=== PATIENT | male | born 1945 | race Caucasian/White ===

== ENCOUNTER 2019-02-22 14:34 | Inpatient (IN) ==
--- NOTE | 2019-02-22 15:16 | Diag Imaging Result Doc PS360 ---
EXAM: CHEST-1 VIEW HISTORY: sepsis protocol TECHNIQUE: Chest single view COMPARISON: 02/20/2019 FINDINGS: Poor inspiratory effort. The heart is not enlarged. There are sternal wires. The vessels are not distended. There are no infiltrates. No effusion identified. IMPRESSION: No pneumonia. Electronically signed by Koko Navarro 02/22/2019 3:14 PM
[2019-02-22 15:19] LABS: BASO# 0.01 X1000 (0.0-0.2); BASO% 0.2 % (0.0-0.8); HEMATOCRIT 33.3 % (42.0-52.0); HEMOGLOBIN 10.8 g/dL (14.0-18.0); IMM GRAN# 0.12 X1000 (0.0-0.04); LYMPH# 0.34 X1000 (1.2-3.4); LYMPH% 5.6 % (20.5-51.1); MCH 24.2 PG (27-31); MCHC 32.4 g/dL (33-37); MCV 74.7 FL (81-99); MONO# 0.48 X1000 (0.11-0.59); MONO% 7.9 % (1.7-9.3); NEUT# 5.16 X1000 (1.4-6.5); NEUT% 84.3 % (42.2-75.2); PLT 81 X1000 (130-400); RBC 4.46 XMIL (4.7-6.1); RDW 18.9 % (11.5-14.5); WBC 6.11 X1000 (4.8-10.8)
[2019-02-22 15:28] LABS: INR 1.24; PROTIME 16.2 Seconds (11.0-16.0)
[2019-02-22 15:29] LABS: PTT 35.2 Seconds (22.3-41.8)
[2019-02-22] MEDS ORDERED: ZOSYN 4.5 GM in NS 100 ML IV ONE (15:40)
[2019-02-22] MEDS ORDERED: NS 500 ML IV ONE (15:41)
[2019-02-22 15:43] LABS: ALBUMIN 3.5 g/dL (3.5-5.0); CALCIUM 8.2 mg/dL (8.8-10.2); CREATININE 1.9 mg/dL (0.7-1.2); MAGNESIUM 1.7 mg/dL (1.5-2.7); POTASSIUM 4.5 mmol/L (3.5-5.1); TOTAL BILIRUBIN 0.6 mg/dL (0.20-1.00); TOTAL PROTEIN 5.6 g/dL (6.3-8.3)
[2019-02-22 15:46] LABS: BE -3.6 mmoll (-3.0-3.0); BLOOD TYPE ARTERIAL; METHB 0.9 % (0.0-1.5); O2(CT) 14.1 mL/dL (15.0-23.0); O2HB 92.7 % (95.0-99.0); PCO2(98.6) 30 mmHg (35-45); PO2(98.6) 62 mmHg (60-100); SAMPLE BLOOD; SAO2 95.7 % (95.0-100.0); THB 10.8 g/dL (11.5-17.4); pH(98.6) 7.43 (7.35-7.45)
[2019-02-22 15:48] LABS: ALLEN TEST YES; MODALITY ROOM AIR
--- NOTE | 2019-02-22 16:07 | EKG Report ---
Test Performed on : 02/22/2019 3:32:18 PM Test Reason : arrythmia Blood Pressure : / mmHG Vent. Rate : 113 BPM Atrial Rate : 117 BPM P-R Int : 000 ms QRS Dur : 130 ms QT Int : 364 ms P-R-T Axes : 000 -22 158 degrees QTc Int : 499 ms Atrial fibrillation. with rapid ventricular response. Left ventricular hypertrophy with QRS widening Inferior infarct (cited on or before 20-FEB-2019) T wave abnormality, consider lateral ischemia Abnormal ECG When compared with ECG of 20-FEB-2019 22:14, (Unconfirmed) Atrial fibrillation. has replaced Sinus rhythm. Serial changes of Inferior infarct present Unconfirmed Result
[2019-02-22 16:14] LABS: CK INDEX 0.8 (0.0-2.5); CK-MB 4.95 ng/mL (0.0-5.0)
[2019-02-22] MEDS ORDERED: ZOFRAN IV PRN (16:27)
[2019-02-22] MEDS ORDERED: NS 1,000 ML IV ONE (16:27)
[2019-02-22 16:37] LABS: BILIRUBIN URINE NEGATIVE (NEGATIVE); BLOOD URINE 4+ (NEGATIVE); CLARITY VERY CLOUDY (CLEAR); COLOR AMBER; KETONE URINE TRACE mg/dL (NEGATIVE); LEUKOCYTES URINE TRACE (NEGATIVE); NITRITE URINE NEGATIVE (NEGATIVE); PROTEIN URINE 2+(100 mg/dL) mg/dL (NEGATIVE); UROBILINOGEN URINE NORMAL
[2019-02-22 16:42] LABS: BANDS 16 % (0-1); LYMPHS 3 % (21-51); MONO 9 % (1-9); SEGS 67 % (42-75)
[2019-02-22 16:43] LABS: BURR CELLS RARE; LARGE PLATELETS OCCASIONAL; MICROCYTOSIS 1+
[2019-02-22] MEDS: ASPIRIN PO SCH (16:56)
[2019-02-22 17:40] LABS: URINE BACTERIA 1+ /HFP; URINE EPITHELIAL CELLS <10 /HPF (<10); URINE RBC TNTC /HPF (<10)
[2019-02-22 17:41] LABS: URINE CAST NONE SEEN /LPF; URINE CRYSTAL NONE SEEN /HPF; URINE SOURCE CATH; URINE YEAST NONE SEEN /HPF
[2019-02-22] MEDS: ZYVOX 600 MG/D5W 600 MG/300 ML IVPB IV SCH (17:50)
[2019-02-22] MEDS: LOVENOX SUBQ SCH (18:07)
[2019-02-22 19:05] LABS: CK INDEX 0.9 (0.0-2.5); CK-MB 4.97 ng/mL (0.0-5.0)
--- NOTE | 2019-02-22 19:38 | HISTORY AND PHYSICAL ---
PRIMARY CARE PROVIDER: Dr. Gab Dyer. CHIEF COMPLAINT: Nausea and vomiting twice today. He has had fever and chills for 3 days. HISTORY OF PRESENT ILLNESS: Mr. Hamzah Tello is a 73-year-old male with a medical history of coronary artery disease. He required coronary artery bypass grafting in the past. Also with history of chronic atrial fibrillation, on Coumadin therapy, that is currently subtherapeutic. Apparently, he came to the ER 2 days ago, but there is no physician record of this, but there is an EKG that was reviewed for 2 days ago. The man denies any chest pains or shortness of breath. He essentially just feels run down, some nausea, had vomiting twice, and has had fever and chills for 3 days. He is somewhat confused on questioning him, but he has an elevation in his troponin level. The EKG does show some elevations in leads 3 and F, but Dr. Brian Edwards spoke with Dr. Bailey who reviewed the EKG from 2 days ago and the EKG from today, and he says there is no change in that, it is going to be considered a NSTEMI and not an ST elevated SD. He also has some signs and symptoms of sepsis. His lactate is up. White count is actually normal, but he is tachycardic. He has a little bit of atrial fibrillation with RVR. Blood pressure is stable with that, and so we are going to transfer him to [facility] PVC unit. We will also get him on broad-spectrum antibiotics as well. PAST MEDICAL HISTORY: 1. Hypertension. 2. Atrial fibrillation, on Coumadin. 3. Diabetes mellitus type 2. 4. Hyperlipidemia. 5. Coronary artery disease with history of CABG. SURGICAL HISTORY: 1. Coronary artery bypass grafting. 2. Bilateral ankle surgery. SOCIAL HISTORY: Denies tobacco, alcohol, or illicit drug use. Lives at home with his and their mentally challenged adult son. FAMILY HISTORY: Mother: No medical conditions. On his father's side, everybody had coronary disease and CABG. ALLERGIES: IVP dye. HOME MEDICATIONS: 1. Januvia 100 mg p.o. nightly. 2. Pravachol 20 mg p.o. nightly. 3. Actos 15 mg p.o. daily. 4. Amiodarone 400 mg p.o. daily. 5. Metformin 500 mg p.o. twice daily. 6. Losartan 50 mg p.o. daily. 7. Toprol-XL 50 mg p.o. twice daily. 8. Coumadin 5 mg p.o. nightly. 9. Prilosec 20 mg p.o. twice daily. REVIEW OF SYSTEMS: Fourteen point review of systems are complete and all were negative except for those mentioned in the above HPI. PHYSICAL EXAMINATION: VITAL SIGNS: Temperature 99.9 degrees, heart rate 118, respiratory rate 22, blood pressure 114/63, O2 saturation 94% on room air. 5 feet 5 inches tall, 172 pounds. BMI is 28.6. GENERAL: Mr. Hamzah Tello is a 73-year-old male. He is answering most questions appropriately. HEENT: Atraumatic, normocephalic. Pupils equal, round, reactive to light. Extraocular movements intact. Mucous membranes are dry. NECK: Trachea midline. CARDIOVASCULAR: S1, S2. Regular rate and rhythm. No rubs, gallops, murmurs. No lower extremity edema. +2 dorsalis and radial pulses. Negative JVD or carotid bruits. PULMONARY: Clear to auscultation. Bilateral breath sounds. No accessory muscle use or work of breathing noted. GI: Soft, nontender, nondistended. Positive bowel sounds x4. EXTREMITIES: Moves all extremities equally. Full range of motion. NEUROLOGIC: Alert and oriented x3, but with confused conversation. SKIN: Warm, dry, intact. LABORATORY DATA: White blood cells 6000, hemoglobin 10, hematocrit 33, platelet count 81,000. Two days ago, it was just 137. INR is 1.24, PTT is 35.2. ABGs: PH 7.43, pCO2 30, pO2 62, bicarbonate 22, base excess -3.6, saturation 92%. Lactate 1.7. Sodium 129, potassium 4.5, BUN 22, creatinine is 1.9, glucose 230, calcium 8.2, magnesium 1.7, bilirubin 0.60, AST 81, ALT 37, CK 603. The index is 0.8, troponin is 1.030. Two days ago, it was normal. ProBNP 24,864. Albumin 3.5. Serum lactate 2.3. IMAGING: Chest x-ray: No pneumonia. Heart not enlarged. EKG: Atrial fibrillation with RVR, rate 113. QTc is 499. ASSESSMENT AND PLAN: 1. Non ST-elevation myocardial infarction. Both electrocardiograms from 2 days ago when he was here and today, it does look like there is an ST elevation in 3 and F, but this was viewed by Dr. Bailey who is not calling this ST-elevation myocardial infarction, so this is going to be a non-ST elevation myocardial infarction, and it is because he is in atrial fibrillation. So, we will do weight-based Lovenox twice a day, aspirin, statin, and metoprolol. 2. Atrial fibrillation with rapid ventricular response. Electrocardiogram shows a rate of 113, but on telemetry he was actually hanging in the 90s while at the bedside. He is on metoprolol twice a day and we will continue that. Will also continue his amiodarone that he is on at home, and currently he is subtherapeutic on his INR, and he is going to be on the weight-based Lovenox. 3. Hypertension. Home medications resumed. 4. Diabetes mellitus type 2 with hyperglycemia. Patterned blood glucoses, sliding scale insulin. Going to hold the metformin for now. 5. Hyperlipidemia. Continue statin. 6. History of coronary artery disease with coronary artery bypass grafting. Please see #1. 7. Signs and symptoms of sepsis, but not shock. Source is currently unknown. Blood cultures ordered. Urinalysis is pending. Chest x-ray does not reveal any pneumonia. 8. Thrombocytopenia. His platelet count is 81,000. Just 2 days ago, it was normal at 137, so we will have to watch closely to make sure he does not have a lower response to the Lovenox. 9. Mild acute kidney injury. He is going to get some fluids, but not too much. His proBNP was over 24,000, and it actually appears to be chronic kidney disease stage 3 in there, looking at his old numbers. 10. Deep venous thrombosis prophylaxis. He is on weight-based Lovenox. Dictated by JOEY Smith for Nader Wilson MD Addendum: Patient seen and examined by myself. Agree with JOEY note. It reflects my assessment and plan. Patient is being admitted to hospital for NSTEMI. Will consult Cardiology. Will continue with Metoprolol and Amiodarone. Will trend cardiac enzymes as well. Will follow lead from Cards. cc: JOEY Smith MD Raphael K. Quansah, MD Thomas E. Lockard, DO MTDD
[2019-02-22] MEDS: PRILOSEC PO SCH (20:26)
[2019-02-22] MEDS: HUMULIN R (PARKWAY) SUBQ SCH (20:26)
[2019-02-22] MEDS: TOPROL XL PO SCH (20:26)
[2019-02-22] MEDS ORDERED: ZOCOR PO SCH (21:00)
[2019-02-22] MEDS ORDERED: LIPITOR PO SCH (21:00)
[2019-02-23] MEDS: TYLENOL PO PRN ×2 (00:05→07:30)
[2019-02-23 02:35] LABS: CK INDEX 0.9 (0.0-2.5); CK-MB 4.83 ng/mL (0.0-5.0)
[2019-02-23] MEDS: LOVENOX SUBQ SCH ×2 (04:16→16:40)
[2019-02-23] MEDS: ZYVOX 600 MG/D5W 600 MG/300 ML IVPB IV SCH (04:16)
[2019-02-23] MEDS: HUMULIN R (PARKWAY) SUBQ SCH ×4 (06:09→21:02)
--- NOTE | 2019-02-23 06:40 | EKG Report ---
Test Performed on : 02/23/2019 06:17:08 AM Test Reason : nstemi Blood Pressure : / mmHG Vent. Rate : 088 BPM Atrial Rate : 100 BPM P-R Int : 000 ms QRS Dur : 130 ms QT Int : 394 ms P-R-T Axes : 000 -06 131 degrees QTc Int : 476 ms Atrial fibrillation. Nonspecific intraventricular block T wave abnormality, consider lateral ischemia Abnormal ECG When compared with ECG of 22-FEB-2019 15:32, (Unconfirmed) Criteria for Inferior infarct are no longer present Confirmed by Wesly Sin MD ([id number]) on 03/01/2019 8:33:28 AM
[2019-02-23] MEDS ORDERED: VANCOMYCIN IV PER PHARMACY MISC SCH (08:45)
[2019-02-23] MEDS: ASPIRIN PO SCH (08:54)
[2019-02-23] MEDS: ZOSYN 2.25 GM in NS 50 ML IV SCH ×3 (08:54)
[2019-02-23] MEDS: TOPROL XL PO SCH ×2 (08:55→21:03)
[2019-02-23] MEDS: PRILOSEC PO SCH ×2 (08:55→21:03)
[2019-02-23] MEDS ORDERED: CORDARONE PO SCH (09:00)
[2019-02-23 09:25] LABS: BASO# 0.01 X1000 (0.0-0.2); BASO% 0.2 % (0.0-0.8); EOS# 0.02 X1000 (0.0-0.7); EOS% 0.3 % (0.0-10.0); HEMATOCRIT 30.1 % (42.0-52.0); HEMOGLOBIN 10.1 g/dL (14.0-18.0); IMM GRAN# 0.05 X1000 (0.0-0.04); IMM GRAN% 0.8 % (0.0-0.5); LYMPH# 0.65 X1000 (1.2-3.4); LYMPH% 10.1 % (20.5-51.1); MCH 24.3 PG (27-31); MCHC 33.6 g/dL (33-37); MCV 72.5 FL (81-99); MONO# 0.65 X1000 (0.11-0.59); MONO% 10.1 % (1.7-9.3); NEUT# 5.06 X1000 (1.4-6.5); NEUT% 78.5 % (42.2-75.2); PLT 74 X1000 (130-400); RBC 4.15 XMIL (4.7-6.1); RDW 18.7 % (11.5-14.5); WBC 6.44 X1000 (4.8-10.8)
[2019-02-23 09:45] LABS: INR 1.35; PROTIME 16.9 Seconds (11.0-16.0)
[2019-02-23 09:56] LABS: ALBUMIN 2.7 g/dL (3.5-5.0); CALCIUM 8.1 mg/dL (8.8-10.2); CREATININE 1.7 mg/dL (0.7-1.2); POTASSIUM 3.6 mmol/L (3.5-5.1); TOTAL BILIRUBIN 0.52 mg/dL (0.20-1.00); TOTAL PROTEIN 5.4 g/dL (6.3-8.3)
[2019-02-23 10:00] LABS: CK INDEX 1.2 (0.0-2.5); CK-MB 5.59 ng/mL (0.0-5.0)
--- NOTE | 2019-02-23 10:23 | EKG Report ---
Test Performed on : 02/23/2019 10:16:04 AM Test Reason : cp Blood Pressure : / mmHG Vent. Rate : 090 BPM Atrial Rate : 234 BPM P-R Int : 000 ms QRS Dur : 132 ms QT Int : 398 ms P-R-T Axes : 000 -09 185 degrees QTc Int : 486 ms Atrial fibrillation. Nonspecific intraventricular block Inferior infarct , age undetermined T wave abnormality, consider lateral ischemia Abnormal ECG When compared with ECG of 23-FEB-2019 06:17, (Unconfirmed) Inferior infarct is now present Confirmed by Wesly Sin MD ([id number]) on 03/01/2019 8:33:47 AM
[2019-02-23 10:26] LABS: ANISOCYTOSIS 1+; BANDS 12 % (0-1); LYMPHS 6 % (21-51); SEGS 80 % (42-75)
[2019-02-23 10:27] LABS: HYPOCHROM 1+; MICROCYTOSIS 1+
[2019-02-23] MEDS ORDERED: VANCOMYCIN 1,650 MG in NS 250 ML IV ONE (11:00)
--- NOTE | 2019-02-23 12:18 | CARDIOLOGY CONSULTATION ---
DATE: 02/23/2019 REASON FOR CONSULTATION: Cardiology was consulted for abnormal cardiac enzymes. HISTORY OF PRESENT ILLNESS: Mr. Tello is a 73-year-old gentleman who has been having fevers and chills since past Tuesday, he has had a fever going up to 104 degrees. Patient came to the emergency room on Tuesday. Subsequently he went and saw Dr. Dyer, was noted to be in atrial fibrillation and with rapid rate. Patient was recommended to be admitted to the hospital. He has had some nausea and vomiting with the fever and he has been complaining of generalized joint pains in his lower extremities, in his ankles, rodriguez as well as in right shoulder. He fell because of weakness and had abrasions on both knees as well as injured his right shoulder. He has been complaining of severe weakness of his lower extremities and is unable to walk. Prior to these episodes, he had been doing reasonably well and was ambulating. He does not complain of chest pain. He complains of weakness and some shortness of breath. Does not complain of any cough or expectoration. Does not complain of having had any burning micturition. REVIEW OF SYSTEMS: A 14-point review of system was done. Gastrointestinal system: As above. In addition, there is no history of hematemesis or melena. Central Nervous System: Complains of generalized weakness. No focal weakness to suggest a CVA, TIA. Genitourinary system: No hematuria. No dysuria. PAST MEDICAL HISTORY: 1. Chronic atrial fibrillation. 2. Hypertension. 3. Diabetes. 4. Coronary artery disease, status post coronary artery bypass grafting in 2002 with DAVISON to left anterior descending artery, SVG to OM, SVG to PDA. 5. Left heart catheterization in the past in 1993. At that time he had a PTCA to his RCA as well. 6. LV dysfunction. HOME MEDICATIONS: Include losartan 50, amiodarone 400, omeprazole 20 b.i.d., metoprolol succinate 50 b.i.d., Coumadin as directed, metformin 500 mg p.o. b.i.d., pravastatin 25, Lotrisone, Januvia. ALLERGIES: He is allergic to IVP dye. PHYSICAL EXAMINATION: Vital Signs: Blood pressure was 110/65. As far as his temperature was concerned, when he came in it was 100.7 degrees, today is 97.9 degrees. Cardiovascular: First and second heart sounds were heard. There was soft murmur. Respiratory System: Normal air entry. There is no crepitations or rhonchi. Abdomen: Soft, nontender. There was no guarding or rigidity. Bowel sounds were heard. Central nervous system: Was alert, oriented. Was moving all 4 extremities. Extremities: Examination of his extremities revealed severe tenderness and swelling in both ankles, tenderness in his knee, tenderness in his right shoulder. LABORATORY EXAMINATION: 1. Revealed WBC 6.4, hemoglobin 10.1, platelet count of 74,000. Sodium 129, potassium 3.6, BUN 26, creatinine 1.7. CK of 547, CK-MB 483, CK of 455, CK-MB 5.59. Troponin abnormal at 1.01, subsequent troponin 0.847. 2. His liver function tests revealed alkaline phosphatase 31. 3. Magnesium was 1.7. Creatinine when he came in was 1.9. 4. Electrocardiogram revealed atrial fibrillation with interventricular conduction delay. No acute ST-T changes to suggest infarction. 5. Chest x-ray was unremarkable. 6. Urine examination revealed urine microscopic RBCs and WBCs were noted with urine proteins and urine glucose was elevated. ASSESSMENT AND PLAN: 1. Ms. Hamzah Tello is a 73-year-old gentleman with history of chronic atrial fibrillation on anticoagulation therapy, coronary artery disease status post coronary artery bypass grafting, hypertension, hyperlipidemia. Comes with complaints of having fevers for almost a week since Tuesday, has had fevers at home going up to 104 degrees. He complains of severe joint pains. He, from a cardiac standpoint, has abnormal cardiac enzymes(Type 2 IN). His blood cultures are pending. I suspect his symptomatology is secondary to an infective process. He has been started on multiple antibiotics. Blood cultures are pending. He has a urinary tract infection. Will get ESR ,CRP 2. From a cardiac standpoint, we will get an echocardiogram to assess cardiac and valvular function. 3. He has abnormal cardiac enzymes that could be multifactorial if he is bacteremic and as well as noted to have renal insufficiency. He denies chest pain at the present time. There was no acute ST elevations to account for any acute myocardial infarction and he denies chest pain. We recommend continuing with his home medications. 4. Diabetes. Continue with his home medications or change it as required. 5. As far as his cardiac medicines are concerned, he has been on amiodarone 400 mg a day. We will decrease it to 200 mg a day. Continue with losartan 50 and metoprolol. 6. Hyperlipidemia. He is on pravastatin. Would recommend continuing the same. 7. As far as further workup is concerned from a cardiac standpoint, we will see what the echocardiogram shows. In addition, I suspect this is all secondary to an infective process. We will follow hospital course. Thank you for the consult. cc: MD Jamie Washington MD MTDD
--- NOTE | 2019-02-23 13:14 | PROGRESS NOTE ---
DATE: 02/23/2019 Mr. Tello is a very poor historian and seems to be fairly confused, and he is not able to give a very accurate history. However, he refers to have gone to [place] yesterday because of some abdominal discomfort and vomiting. No diarrhea. He is also complaining of left ankle pain for the past 3 days associated with generalized weakness and malaise. After presenting to the emergency department in [place], he was found to be in atrial fibrillation RVR, so he was brought in here for higher level of care. This morning, he refers to be doing a little better, but he still has a left ankle pain. OBJECTIVE: Vital signs: Blood pressure is 110/65. Pulse is currently 85 on the tele monitoring. Respirations are 18, temperature 97.9 degrees. The patient is saturating 93% on room air. General: Mr. Tello is a 73-year-old elderly gentleman. He does not seem to be in any distress. HEENT: Mucosa is pink and moist. Anicteric. Acyanotic. Neck: Supple. No JVD. Chest: Good air entry bilaterally. No crepitations. Cardiovascular: Regular rate and rhythm. The patient's heart rate is now better controlled. No murmurs. There is an old sternotomy scar on the anterior mid chest wall. Abdomen: Soft, nontender. Extremities: No pedal edema. The left ankle is slightly swollen. I do not see any erythematous changes, but it is very tender on range of movement. The patient has superficial abrasions on both knees. 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 He seems to have some baseline cognitive defect. LABORATORY DATA: CBC shows microcytic anemia and thrombocytopenia. The patient has 12% of bands on the peripheral smear. INR 1.3. Patient was on Coumadin therapy. Sodium is 129. Bicarb is 22. Creatinine is down to 1.7. Troponins have been fairly elevated at 0.847. It went up to 1.010; it is likely trending down. A chest x-ray yesterday shows no pneumonia. Blood culture is showing gram-positive cocci 2/2. ASSESSMENT: 1. Gram-positive cocci bacteremia. The source of this infection is currently unknown. There is a suspicion that the left ankle could have septic arthritis. We will do a CT scan of that and will also get Orthopedics to evaluate him. 2. Sepsis of unclear source. The patient is on antimicrobial therapy. Blood cultures are showing gram-positive cocci. 3. Left ankle pain. The left ankle is minimally swollen. We are going to get a CT scan of it. Unfortunately, patient's creatinine is abnormal, so we cannot use any contrast. We will also get Orthopedics to evaluate. They might have to end up doing an aspiration to rule out septic arthritis versus possible gout. 4. Acute on chronic renal failure. We will continue with the IV fluids. Creatinine seems to be trending down. 5. History of paroxysmal atrial fibrillation with rapid ventricular rate on presentation. We think this has been precipitated because of the ongoing sepsis. The patient has been evaluated by Cardiology. We are going to continue with his metoprolol. 6. Microcytic anemia. We will check iron studies to rule out any underlying iron deficiency. If it is confirmed, it will be replaced once infection is under control. 7. Elevated troponin with no acute EKG changes concerning for either a demand ischemia (type 2 myocardial infarction) versus a possible [id number] myocardial infarction. The patient has a remarkable history of coronary artery disease status post CABG. Cardiology has evaluated the patient. 8. Thrombocytopenia. Most likely due to the ongoing sepsis. So in general, I think Mr. Tello is critically sick. He is currently on Zosyn and vancomycin combination. We have consulted ID to help us with antimicrobial coverage. We will also get Orthopedics to evaluate the ankle to rule out any possible septic arthritis. Mr. Tello has been seen by Cardiology. His heart rate is currently under control on the metoprolol. We will continue with his other home medications. cc: Jamie Solomon MD critical time 45 minutes [facility]
[2019-02-23] MEDS: CUBICIN 500 MG in NS 100 ML IV SCH (14:16)
--- NOTE | 2019-02-23 16:32 | Diag Imaging Result Doc PS360 ---
EXAM: CT EXT LOWER LEFT W/O CON INDICATION: GPC bacteremia. r/o left septic arthritis TECHNIQUE: This exam was performed using automated exposure control, adjustment of mA or kV according to patient size, and/or use of iterative reconstruction technique. COMPARISON: None. FINDINGS: There is extensive irregularity involving the talus and calcaneus with subcortical cyst formation, especially adjacent to the subtalar joint. There are chronic appearing bony fragments posterior to the talus. 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 There are milder degenerative changes at the distal tibia and fibula. There is no evidence of acute fracture. There is nothing that would necessarily indicate osteomyelitis on the current study. However, MRI would be more sensitive. There is mild generalized soft tissue edema around the foot. 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 No finding that is specific for osteomyelitis given the limitations of CT versus MRI. Electronically signed by Devin Eason 02/23/2019 4:29 PM
--- NOTE | 2019-02-23 16:41 | INFECTIOUS DISEASE CONSULT REP ---
DATE: 02/23/2019 CONCLUSION: The patient has a gram-positive coccal bacteremia and I think this will route returner to be either a Streptococcus or Staphylococcus aureus. I think it originated from the patient when he fell on his knees and caused blood to come from the wounds on the knee. I think possibly organisms on the patient's skin entered through the bleeding wounds and caused the bacteremia. He has a left ankle that is swollen and it may have become infected hematogenously, or maybe it just the swelling because when he fell he puts some different pressure on the ankle. RECOMMENDATIONS: I have switched the patient from vancomycin and Zosyn to daptomycin. A side effect of the antibiotic, namely muscle toxicity, has been explained to the patient who agrees with treatment. I have discontinued the patient's Pravachol because it can interact with daptomycin and increase the risk of muscle toxicity. I told the patient that while he is on daptomycin, he should not take his Pravachol and that once the daptomycin is stopped, he can resume Pravachol. DISCUSSION: The patient tells me approximately 5 days ago he fell and injured his knees. He was out walking when he fell. He caused blood to be coming from both knees. He developed progressive pain in his legs. He has been admitted to the hospital. Here his blood cultures are growing gram- positive cocci. Urine culture is negative. Urinalysis did show white cells and bacteria. Chest x-ray shows no infiltrates. CK is 455. Creatinine is 1.7. GFR is 40. CBC shows a white count of 6440, hemoglobin 10.1, and platelet count 74,000. PAST MEDICAL HISTORY/REVIEW OF SYSTEMS: Eyes and ears: He says he hears and sees well. Neck: No stiffness. Cardiac: No chest pain or palpitations. Gastrointestinal: No nausea, vomiting, or diarrhea. Genitourinary: No dysuria or flank pain. Neurovascular: The patient's legs are sore and he is unable to walk because of that. His left ankle is also more swollen than the right and it is causing the patient pain when he tries to walk on it. Neurologic: No seizures. The patient now is finding it much more difficult to walk due to pain especially in his ankles. PREVIOUS HOSPITALIZATIONS AND OPERATIONS: Patient has had bilateral ankle joint surgeries. He has also had coronary artery bypass grafting. MEDICAL DISEASES: Positive for diabetes mellitus, hypertension, myocardial infarction, hyperlipidemia, paroxysmal atrial fibrillation and coronary artery disease. INFECTIOUS DISEASE HISTORY: Negative for pneumonia and UTI. FAMILY HISTORY: Positive for diabetes mellitus, hypertension and myocardial infarction. SOCIAL HISTORY: The patient is . He lives in [place]. He is retired. He does not smoke cigarettes, drink alcoholic beverages or abuse drugs. He does not have any pets at home. ALLERGIES: He is allergic to IV dye. HOME MEDICATIONS: Include the following: Amiodarone, lisinopril losartan, metformin, metoprolol, omeprazole, Actos Pravachol, Januvia, and warfarin. The if you could I made a mistake on when I am when I was dictating about stopping the patient's Lipitor. If you could change where I dictated Lipitor a few could put Pravachol instead not continuing. PHYSICAL EXAMINATION: Vital Signs: Temperature is 99.7 degrees, pulse 94, respirations 16, blood pressure 114/74. The patient is 5 feet 5 inches tall, weighs 184 pounds. General: This is an obese, elderly male. He is in no acute distress just lying in bed. Head/eyes/ears/nose/throat: He can hear my spoken words and see near objects. He does not have any white coating on his tongue. Neck: No meningismus. Lungs: Clear to auscultation. Cardiovascular: Heart rate is irregular. Abdomen: Soft and nontender. Extremities: Both knees have some erythema and multiple small eschars over the kneecap. The patient's ankles are swollen. The left is more so than the right. I wiped off the patient's ankle with alcohol and then I sterilely put the patient's needle on the syringe and attempted to aspirate the ankle. I put the needle in only once and I did not obtain any fluid. I cleaned the area again where I put needle in with alcohol and then I have put some 2 x 2s over that and I taped down the 2 x 2s. Neurologic: The patient is awake. He can move his extremities. It does hurt him to move his ankles. He does not have a tremor. He has sensations intact to touch and pain. Thank you for the consult. cc: MD Jamie Mayer MD
--- NOTE | 2019-02-23 18:24 | ECHO REPORT ---
ORDER DATE: 02/23/2019 MEASUREMENTS: Left atrium 4.3, aortic root 3.9. SUMMARY: 1. Fair quality study. 2. Aortic valve is sclerotic but appears to open adequately on 2-dimensional images. Peak gradient across aortic valve is 12 mmHg. Mitral and tricuspid valves are without evidence of structural abnormality while pulmonic valve is not well demonstrated. There is mild mitral regurgitation and mild tricuspid regurgitation. The estimated systolic PA pressure by Doppler is 65 mmHg suggesting moderate to severe pulmonary hypertension. Aortic root is borderline enlarged. 3. Normal left ventricular dimensions suggested on 2-dimensional images. Estimated left ejection fraction appears to be approximately 40% in the setting of mild global hypokinesis. Left atrium is mild to moderately enlarged. The right atrium, right ventricle are grossly normal in size. 4. No pericardial effusion. 5. Appearance of inferior vena cava suggests normal central venous pressure. 6. Atrial fibrillation during study. cc: MD Delores Mcclure CRNP Raphael K. Quansah, MD
--- NOTE | 2019-02-23 19:02 | ORTHOPAEDICS CONSULTATION ---
DATE: 02/23/2019 SUBJECTIVE: Hamzah Tello is a 73-year-old male who was admitted on 02/22 for cardiac abnormality, possible PR. He was subsequently diagnosed with bacteremia, sepsis, and he was complaining of left ankle pain and swelling and inability to bear weight. Dr. Saucedo saw him from Infectious Disease and placed him on daptomycin and attempted arthrocentesis of the ankle without returning any fluid. They also did a CT scan of his ankle as well, which showed mostly chronic degenerative type changes, but no definitive abscess or osteomyelitis; however, there are limitations of the CT scan in that regard. OBJECTIVE: On physical exam, he is a well-developed, well-nourished male. He is alert and cooperative with the exam. He does pain with range of motion of his subtalar joint mainly. He does have some mild pain with range of motion of his ankle. His foot is mildly swollen and warm as well. PAST MEDICAL HISTORY: Includes hypertension, atrial fibrillation, diabetes, coronary artery disease with a CABG in the past. PAST SURGICAL HISTORY: His past surgical history includes coronary artery bypass graft and bilateral foot surgery. REVIEW OF SYSTEMS: Negative except as noted above. MEDICATIONS AND ALLERGIES: See chart. ASSESSMENT: Left ankle pain, swelling and warmth but no significant palpable fluid in his ankle joint or subtalar joint. I think we should get an MRI of his ankle and foot to evaluate for possible osteomyelitis as I do not feel he has septic arthritis. He certainly has significant degenerative changes in his foot but particularly the subtalar joint and these symptoms could all be related to a Charcot type joint but that still would not explain the bacteremia. Once we get the MRI, we will decide how to proceed from there. I can attempt another arthrocentesis if there does appear to be fluid in the joint. cc: MD Jamie Perkins MD [facility]
[2019-02-23] MEDS ORDERED: HALDOL IM ONE (23:49)
[2019-02-23] MEDS ORDERED: HALDOL IM PRN (23:50)
[2019-02-24] MEDS ORDERED: HALDOL IM PRN (00:19)
[2019-02-24] MEDS: HUMULIN R (PARKWAY) SUBQ SCH ×4 (06:08→21:11)
[2019-02-24] MEDS: LOVENOX SUBQ SCH ×2 (06:08→16:13)
[2019-02-24 07:40] LABS: ALBUMIN 2.9 g/dL (3.5-5.0); CALCIUM 8.2 mg/dL (8.8-10.2); CREATININE 1.5 mg/dL (0.7-1.2); PHOSPHORUS 2.4 mg/dL (2.7-4.5); POTASSIUM 3.8 mmol/L (3.5-5.1)
[2019-02-24 08:22] LABS: INR 1.16
--- NOTE | 2019-02-24 08:27 | PROGRESS NOTE ---
DATE: 02/24/2019 SUBJECTIVE: Today Mr. Tello was sleeping but was easily arousable. He is referred to be doing fairly okay. No new complaints except that the left ankle continues to be hurting. OBJECTIVE: Vital signs: Blood pressure is 139/88, pulse of 93, respirations 20, temperature is 98.2 degrees. General: Mr. Tello is a 73-year-old gentleman. He was in bed, no distress. Mucosa is pink and moist. Anicteric. Acyanotic. Neck: Supple. Chest: Good air entry bilaterally. Few crackles posteriorly. Cardiovascular: Regular rate and rhythm. There is an old sternotomy scar on the anterior chest wall. GI: Abdomen is soft, nontender. Bowel sounds present. Extremities: Some bruises over the knees. The left ankle continues to be remarkably more tender. 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 LABORATORY DATA: CBC is not available at the time of the dictation. Chemistry is being reviewed. Creatinine is down to 1.5. The patient's I's and O's: The urine output was 1600. He is currently negative balance of about 770. MEDICATIONS: Have all been reviewed. ASSESSMENT: 1. Gram-positive cocci bacteremia associated with sepsis. The patient is currently on daptomycin. 2. Left ankle pain. A CT scan shows extensive chronic posttraumatic changes; however, osteomyelitis could not be completely ruled out because of lack of contrast. MRI is recommended. 3. Acute on chronic renal failure. Patient is on fluids. Creatinine continues to be trending down. 4. History of paroxysmal atrial fibrillation with RVR on presentation. Heart rate is under control. 5. Elevated troponin, presumably demand ischemia. 6. Microcytic anemia. We are pending the iron studies. So in general, I think Mr. Tello seems to be fairly stable. He looks more stable than yesterday. We will continue with the current antimicrobial coverage. Blood cultures still pending the final ID and sensitivity on the gram positive cocci. The patient has been seen by Infectious Disease, Cardiology and Orthopedics. cc: Jamie Solomon MD
[2019-02-24 08:39] LABS: BASO# 0.01 X1000 (0.0-0.2); BASO% 0.1 % (0.0-0.8); HEMATOCRIT 30.2 % (42.0-52.0); HEMOGLOBIN 10.1 g/dL (14.0-18.0); IMM GRAN# 0.05 X1000 (0.0-0.04); IMM GRAN% 0.6 % (0.0-0.5); LYMPH# 0.94 X1000 (1.2-3.4); LYMPH% 12.2 % (20.5-51.1); MCHC 33.4 g/dL (33-37); MCV 71.7 FL (81-99); MONO# 0.74 X1000 (0.11-0.59); MONO% 9.6 % (1.7-9.3); NEUT# 5.98 X1000 (1.4-6.5); NEUT% 77.5 % (42.2-75.2); PLT 76 X1000 (130-400); RBC 4.21 XMIL (4.7-6.1); RDW 18.3 % (11.5-14.5); WBC 7.72 X1000 (4.8-10.8)
[2019-02-24] MEDS: ASPIRIN PO SCH (09:58)
[2019-02-24] MEDS: PRILOSEC PO SCH ×2 (09:58→21:11)
[2019-02-24] MEDS: CORDARONE PO SCH (09:58)
[2019-02-24] MEDS: TOPROL XL PO SCH ×2 (09:58→21:11)
[2019-02-24] MEDS: CUBICIN 500 MG in NS 100 ML IV SCH (13:11)
--- NOTE | 2019-02-24 15:24 | CARDIOLOGY PROGRESS NOTE ---
DATE: 02/24/2019 SUBJECTIVE: Mr. Tello is somewhat confused, but seems to wake and attempt to answer questions. PHYSICAL EXAMINATION: Vital Signs: He is afebrile, heart rate 87, his blood pressure 124/71. General: He is in no acute distress. Cardiovascular: He sounds to be in an irregularly irregular rhythm which is consistent with atrial fibrillation. He has no lower extremity edema. Chest: Clear bilaterally. He has no increased work of breathing. Abdomen: Soft, nontender, nondistended. He has no obvious organomegaly. PERTINENT DATA: His lab data shows a white count is 7.7, his hematocrit is 30, his platelet count is 76,000. His sodium is 130, potassium is 3.8, BUN 24, creatinine is 1.5. His albumin level is 2.9. His blood culture data showed gram-positive cocci on a Gram stain, but thus far has not grown out an organism. ASSESSMENT: Mr. Tello is a 73-year-old gentleman who presented with presumed sepsis. Has a history of atrial fibrillation. PLAN: At this point, he is continuing with medications. His blood pressures seem reasonably controlled, based on the most recent measurements. He is on Lovenox for his atrial fibrillation. We will try to re-initiate his heart medications in the near future in the form of metoprolol and lisinopril. cc: MD Jamie Loyola MD
--- NOTE | 2019-02-24 19:45 | Diag Imaging Result Doc PS360 ---
EXAM: HUMERUS-RIGHT INDICATION: trauma to right shoulder TECHNIQUE: 3 views COMPARISON: None. FINDINGS: There is no discrete fracture, dislocation, or significant intrinsic osseous lesion. The visualized joint spaces are essentially unremarkable. The surrounding soft tissues are essentially unremarkable. IMPRESSION: No evidence of acute osseous abnormality. Electronically signed by Devin Eason 02/24/2019 7:43 PM
--- NOTE | 2019-02-24 19:45 | Diag Imaging Result Doc PS360 ---
EXAM: SHOULDER 1 VIEW RIGHT INDICATION: trauma to right shoulder TECHNIQUE: One view COMPARISON: None. FINDINGS: There is no discrete fracture, dislocation, or significant intrinsic osseous lesion. The visualized joint spaces are essentially unremarkable. The surrounding soft tissues are essentially unremarkable. IMPRESSION: No evidence of acute osseous abnormality. Electronically signed by Devin Eason 02/24/2019 7:43 PM
[2019-02-24] MEDS: MIRALAX PO SCH (21:10)
[2019-02-24] MEDS: TYLENOL PO PRN (21:11)
[2019-02-24] MEDS ORDERED: VANCOMYCIN 1,400 MG in NS 250 ML IV SCH (23:00)
[2019-02-25] MEDS: TYLENOL PO PRN ×2 (04:19→23:22)
[2019-02-25] MEDS: LOVENOX SUBQ SCH ×2 (06:19→17:06)
[2019-02-25] MEDS: HUMULIN R (PARKWAY) SUBQ SCH ×4 (06:21→20:51)
[2019-02-25 07:45] LABS: BASO# 0.01 X1000 (0.0-0.2); BASO% 0.1 % (0.0-0.8); EOS# 0.01 X1000 (0.0-0.7); EOS% 0.1 % (0.0-10.0); HEMATOCRIT 27.6 % (42.0-52.0); HEMOGLOBIN 9.6 g/dL (14.0-18.0); IMM GRAN# 0.04 X1000 (0.0-0.04); IMM GRAN% 0.6 % (0.0-0.5); LYMPH# 0.85 X1000 (1.2-3.4); LYMPH% 12.6 % (20.5-51.1); MCH 24.4 PG (27-31); MCHC 34.8 g/dL (33-37); MCV 70.2 FL (81-99); MONO# 0.79 X1000 (0.11-0.59); MONO% 11.7 % (1.7-9.3); NEUT# 5.06 X1000 (1.4-6.5); NEUT% 74.9 % (42.2-75.2); PLT 75 X1000 (130-400); RBC 3.93 XMIL (4.7-6.1); WBC 6.76 X1000 (4.8-10.8)
[2019-02-25 07:57] LABS: ALB/GLOB RATIO 0.9; ALBUMIN 2.4 g/dL (3.5-5.0); CALCIUM 8.3 mg/dL (8.8-10.2); CREATININE 1.5 mg/dL (0.7-1.2); POTASSIUM 3.5 mmol/L (3.5-5.1); TOTAL BILIRUBIN 0.73 mg/dL (0.20-1.00); TOTAL PROTEIN 5.2 g/dL (6.3-8.3)
[2019-02-25] MEDS: PRILOSEC PO SCH ×2 (09:53→20:50)
[2019-02-25] MEDS: MIRALAX PO SCH (09:53)
[2019-02-25] MEDS: TOPROL XL PO SCH ×2 (09:53→20:50)
[2019-02-25] MEDS: ASPIRIN PO SCH (09:53)
[2019-02-25] MEDS: CORDARONE PO SCH (09:53)
[2019-02-25 11:14] LABS: INR 1.26
--- NOTE | 2019-02-25 12:57 | PROGRESS NOTE ---
DATE: 02/25/2019 SUBJECTIVE: This morning, I was able to meet Mr. Tello' at the bedside at the time of the encounter, and Mr. Tello tells me that Mr. Tello was actually getting sicker since last week, Tuesday, when he started coming down with some fever and chills, and that his left ankle has also been hurting him for some time. He said Mr. Tello spent all of Tuesday and Tuesday in bed. He came to the emergency room on 02/20/2019, and he was apparently sent home from, for dizziness. According to the , Mr. Tello continued to be sick at home, so they were going to take him to see his PCP, Dr. Dyer, on , when they decided to come here because he could barely get out of bed, he had to crawl, and that is the reason why he sustained those scratches on his knees. This morning, Mr. Tello refers to be feeling a lot better. OBJECTIVE: Vital Signs: Blood pressure is 140/79, pulse is 100, respirations 18, temperature 97.8 degrees. General: Mr. Tello is a 73-year-old gentleman. He is in bed. He is not in any distress. HEENT: Mucosa is pink and moist. Anicteric. Acyanotic. Neck: Supple. Chest: Good air entry bilaterally. Did not hear any crackles. Cardiovascular: Regular rate and rhythm. Now rate controlled. There is an old sternotomy scar on the anterior chest wall. GI: Abdomen is soft, nontender. Bowel sounds present. Extremities: There are some bruises over both knees. The left ankle continues to be remarkably tender. The left foot is very deformed from previous traumatic injury. 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 LABORATORY DATA: WBC is 6.76, hemoglobin is 9.6, platelet count 75,000. Chemistry is also reviewed. Creatinine is down to 1.5. That seems to be the patient's baseline. Urine output was 1600 overnight. Blood culture is growing MRSA. ASSESSMENT: 1. Sepsis with methicillin-resistant staphylococcus aureus bacteremia. Source of infection is unclear. Will presume it is from the left ankle, and either septic arthritis or osteomyelitis would need to be rule out. An MRI has been ordered for tomorrow. With the methicillin- resistant staphylococcus aureus in the blood, I think it is reasonable to pursue a transesophageal echocardiogram since the patient's transthoracic echocardiogram was unremarkable for any vegetations. Cardiology is on board, and we will follow up with any further recommendations from them. 2. Left ankle pain. An MRI has been ordered for tomorrow to rule out osteomyelitis. 3. Acute on chronic renal failure. Creatinine is fairly stable. 4. Paroxysmal atrial fibrillation with rapid ventricular response. Heart rate is now better controlled. 5. Elevated troponins on presentation, presumably demand ischemia (type 2 myocardial infarction). Cardiology is on board. 6. Microcytic anemia. We are still pending the iron studies. 7. Altered mental status with hallucinations. We think this is delirium secondary to the infectious disease. 8. Thrombocytopenia, presumably from sepsis. Platelet count fairly stable. 9. Congestive heart failure. Ejection fraction of 40% with mild global hypokinesis. The patient has remarkable ischemic heart disease, and Cardiology is on board. 10. Ischemic heart disease, status post coronary artery bypass graft in the past. Cardiology is on board. The patient's home medications have been restarted. In general, I think Mr. Tello came in septic. Blood cultures are now growing methicillin- resistant staphylococcus aureus. We are not 100% sure about the source. We are going to do a CT scan of the chest, abdomen, and pelvis to see if we can identify any source in any cavity. He is also pending an MRI of the left ankle to rule out any septic joint or an osteomyelitis. For now, we are going to continue with the daptomycin. Mr. Tello' mentation is now a lot better than yesterday. We will be pending on Cardiology evaluation to decide on transesophageal echocardiogram to rule out endocarditis since we have a pathogen which would be concerning for valve infection. cc: Jamie Solomon MD
[2019-02-25] MEDS: CUBICIN 500 MG in NS 100 ML IV SCH (14:15)
--- NOTE | 2019-02-25 15:09 | CARDIOLOGY PROGRESS NOTE ---
DATE: 02/25/2019 SUBJECTIVE: Mr. Tello reports he continues to have some myalgias and arthralgias. Relatively stable over the course of the hospitalization. OBJECTIVE: Vital Signs: The patient is afebrile. Heart rate of 100, blood pressure 140/79. General: He is in no acute distress. Cardiovascular: He sounds to be in an irregularly irregular rhythm consistent with atrial fibrillation. He has no murmurs. No lower extremity edema. Chest: Exam sounds clear bilaterally. He has no increased work of breathing. Abdomen: Soft, nontender. PERTINENT DATA: His micro data demonstrates that he has Staphylococcus aureus in his blood. Lab data shows a white count of 6.7, hematocrit of 27, platelet count is 75,000. His INR is 1.2. Sodium 132, potassium 3.5, BUN is 30, creatinine is 1.5. ASSESSMENT: Mr. Tello is a 73-year-old gentleman with staph sepsis. PLAN: We will start slowly reinitiating some of his heart medications. His metoprolol was started today. I will start his losartan in the morning. Otherwise, no acute changes to his regimen. He is on treatment dose of Lovenox at this point for his atrial fibrillation. cc: MD Jamie Loyola MD
--- NOTE | 2019-02-25 15:34 | INFECTIOUS DISEASE PROGRESS NO ---
DATE: 02/25/2019 The patient has a methicillin-resistant Staph aureus bacteremia. I think it originated from the patient's skin when he fell on his knees. I think Dr. Solomon's idea that the patient may have endocarditis is a very good thought. MEDICATIONS: The patient is on daptomycin. PHYSICAL EXAMINATION: Vital Signs: Temperature earlier was 101; now it is 97.8. Pulse 100, respirations 18, blood pressure 140/79. General: This is an ill-appearing elderly male. He is having all of his pain mainly from his left ankle which is swollen. Head/eyes/ears/nose/throat: He can hear my spoken words and see near objects. I do not see any white patches in his mouth. Neck: No meningismus. Lungs: Clear to auscultation. Cardiovascular: Regular heart rate. Abdomen: Soft and nontender. Extremities: The left ankle remains swollen and tender. It also hurts when it is moved. Neurologic: The patient still is a little lethargic. He does follow request to move his extremities. He does not have a tremor. He does talk in a coherent fashion. LAB AND X-RAY: CBC shows a white count of 6760, hemoglobin 9.6, platelet count is 75,000. Creatinine is 1.5. GFR is 46. As mentioned above, the blood culture is growing methicillin- resistant Staph aureus. His CT scan of the left ankle shows no osteomyelitis. ASSESSMENT AND PLAN: Patient has methicillin-resistant Staphylococcus aureus bacteremia. My plan is to continue daptomycin. I think Dr. Solomon's recommendation for a transesophageal echocardiogram is a good one, and I will leave it to him to order it. Also I agree with repeating tomorrow blood cultures. COMORBIDITIES: The patient is elderly, and he has diabetes mellitus. He also has had a myocardial infarction, and he also has coronary artery disease. cc: MD Jamie Mayer MD MTDD
--- NOTE | 2019-02-25 18:05 | Diag Imaging Result Doc PS360 ---
EXAM: CT THORAX/ABD/PELVIS W/O CON INDICATION: MRSA bacteremia. unknown source TECHNIQUE: This exam was performed using automated exposure control, adjustment of mA or kV according to patient size, and/or use of iterative reconstruction technique. COMPARISON: None. FINDINGS: CHEST: There is groundglass airspace consolidation involving the right upper lobe near the apex and, to a lesser degree, the right middle lobe and the right lower lobe. This is consistent with multilobar pneumonia. There are bilateral small pleural effusions and bibasilar atelectasis. The heart is borderline to mildly prominent. There are a few calcified left hilar lymph nodes indicating prior granulomatous disease. No significant lymphadenopathy is identified, otherwise. There are CABG changes. ABDOMEN/PELVIS: The liver, spleen, gallbladder, pancreas, and adrenal glands are grossly unremarkable. There is marked atrophy at the lower pole of the left kidney. There is bilateral perinephric stranding. This is probably chronic. However, it is nonspecific. It is more prominent on the right. There is no hydronephrosis. There is a Hernandez catheter in the urinary bladder and the bladder is nondistended. The rectal wall appears mildly thickened. This is probably due to underdistention. However, proctitis is possible. No other bowel wall thickening is identified. There is no evidence of bowel obstruction. The remainder of the GI tract is grossly unremarkable as imaged. There is extensive aortoiliac atherosclerotic calcification. There is severe thoracolumbar dextroscoliosis. IMPRESSION: 1.Multilobar pneumonia on the right. 2.Bilateral small pleural effusions and bibasilar atelectasis. 3.Mild nonspecific perinephric stranding is more prominent on the right. This could be chronic due to perinephric fibrotic change, however. 4.Questionable mild rectal wall thickening. However, this is probably due to underdistention. Correlate clinically to exclude proctitis. 5.Other incidental/nonacute findings detailed above. Electronically signed by Devin Eason 02/25/2019 6:02 PM
[2019-02-26] MEDS: LOVENOX SUBQ SCH ×2 (06:11→17:34)
[2019-02-26] MEDS: HUMULIN R (PARKWAY) SUBQ SCH ×4 (06:11→21:28)
[2019-02-26 07:33] LABS: INR 1.17; PROTIME 15.1 Seconds (11.0-16.0)
[2019-02-26 07:39] LABS: HEMATOCRIT 29.8 % (42.0-52.0); HEMOGLOBIN 10.4 g/dL (14.0-18.0); MCH 24.5 PG (27-31); MCHC 34.9 g/dL (33-37); MCV 70.3 FL (81-99); PLT 131 X1000 (130-400); RBC 4.24 XMIL (4.7-6.1); WBC 6.49 X1000 (4.8-10.8)
[2019-02-26 07:51] LABS: ALBUMIN 2.5 g/dL (3.5-5.0); CALCIUM 8.4 mg/dL (8.8-10.2); CREATININE 1.8 mg/dL (0.7-1.2); PHOSPHORUS 2.5 mg/dL (2.7-4.5); POTASSIUM 3.7 mmol/L (3.5-5.1)
[2019-02-26] MEDS: TOPROL XL PO SCH ×2 (08:55→21:28)
[2019-02-26] MEDS: COZAAR PO SCH (08:55)
[2019-02-26] MEDS: PRILOSEC PO SCH ×2 (08:55→21:28)
[2019-02-26] MEDS: ASPIRIN PO SCH (08:55)
[2019-02-26] MEDS: CORDARONE PO SCH (08:55)
[2019-02-26] MEDS: MIRALAX PO SCH (08:56)
--- NOTE | 2019-02-26 12:40 | PROGRESS NOTE ---
DATE: 02/26/2019 SUBJECTIVE: This morning, Mr. Tello refers to be doing fairly okay. Still has some pains in the left ankle. was not at the bedside, and there was not any other family member. OBJECTIVE: Vital Signs: Blood pressure is 134/76, pulse of 120, respirations 18, temperature 98 degrees, the patient was saturating 100% on nasal cannula. General: A 73-year-old, elderly, male. He is in bed. No distress. HEENT: Mucosa is pink and moist. Anicteric. Acyanotic. Neck: Supple. Chest: Good air entry bilaterally. A few crackles in the posterior lung helms, more so to the right lung field. Cardiovascular: Tachycardic and seems to be regular. There is an old sternotomy scar on the anterior chest wall. Abdomen: Soft. Bowel sounds present. Extremities: No pedal edema. There are some bruises over both knees. The left ankle is minimally swollen and tender. 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 LABORATORY DATA: Laboratory data has been reviewed. Platelet count is normalized. Hemoglobin has improved. WBC is within normal range. Chemistry is also reviewed. Creatinine is up to about 1.8. The patient's urine output was about 400 today. He is still kind of negative balance. ASSESSMENT: 1. Sepsis with methicillin-resistant staphylococcus aureus bacteremia. Source of infection is still unclear. A CT scan of the lungs seems to suggest right upper lobe pneumonia. However, there is some multifocal picture today. It is unsure if there is any underlying endocarditis. The patient is currently on daptomycin. We will wait on Infectious Disease to evaluate and see if they would want to make any changes on antimicrobial therapy. 2. Multifocal pneumonia. The patient is on antimicrobial therapy. However, daptomycin would not be the most ideal to treat pneumonia. His parameters, however, seem to be fairly okay, so will wait on Infectious Disease to evaluate, and then go from there. 3. Left ankle pain. We are pending an MRI to rule out osteomyelitis. 4. Acute on chronic renal failure. 5. Paroxysmal atrial fibrillation with rapid ventricular response. Will continue with medications. Cardiology is on board. 6. Elevated troponin, presumably demand ischemia. 7. Altered mental status with hallucination due to delirium. 8. Congestive heart failure with ejection fraction of 40% with global hypokinesis. 9. Ischemic heart disease. 10. Mild rectal wall thickening concerning for proctitis. The patient is already on antimicrobial therapy, and no diarrhea. In general, I think Mr. Tello is doing fairly okay. He is afebrile. Blood pressures are within normal range. He is still kind of tachycardic and in atrial fibrillation. I have reviewed his CT scan of the abdomen and pelvis yesterday, which seems to suggest a multilobar pneumonia on the right. He is currently on daptomycin. He might probably need another agent. Infectious Disease is on board, and we will wait for them to review before we make any changes. I also think that Mr. Tello will eventually need a transesophageal echocardiogram since his transthoracic echocardiogram was unremarkable. Cardiology is on board, and will discuss this with them. cc: Jamie Solomon MD
--- NOTE | 2019-02-26 12:51 | ORTHOPAEDICS PROGRESS NOTE ---
DATE: 02/26/2019 SUBJECTIVE: Hamzah Tello is a 73-year-old male with sepsis and left foot and ankle swelling. He states it is some improved but he still cannot bear weight. OBJECTIVE: He does appear to have swelling and erythema of his foot, but continues to have pain with range of motion of his foot and ankle. ASSESSMENT: Sepsis with possible osteomyelitis versus arthritis of his foot and ankle. PLAN: We really cannot get a MRI with contrast due to his elevated creatinine, so I canceled the MRI. If he continues to not get better as far as his ankle is concerned, we will ask Dr. Feldman to see him tomorrow to see if he thinks he could be septic ankle. cc: Yamil Roblero MD
[2019-02-26] MEDS: CUBICIN 500 MG in NS 100 ML IV SCH (14:34)
--- NOTE | 2019-02-26 17:05 | INFECTIOUS DISEASE PROGRESS NO ---
DATE: 02/26/2019 PRESENT ILLNESS: The patient has methicillin-resistant Staph aureus bacteremia which I think occurred when he fell on his knees. He may have developed a left ankle osteomyelitis hematogenously. MEDICATIONS: The patient is on daptomycin. PHYSICAL EXAMINATION: Vital Signs: Temperature is 98 degrees, pulse 120, respirations 18, blood pressure 135/76. General: This is an ill-appearing elderly male. He is somewhat lethargic today. Head, eyes, ears, nose and throat: He can hear my spoken words and see near objects. I do not see any white coating of his tongue. Neck: No pain with movement. Lungs: Clear to auscultation. Cardiovascular: Heart rate today is irregular. Abdomen: Soft and nontender. Extremities: The patient's left ankle is swollen and tender and it does hurt when it is moved. Neurologic: As mentioned above, patient is lethargic. He does not have a tremor. LAB AND X-RAY: CBC shows a white count of 6490, hemoglobin 10.4, and platelet count 131,000. Creatinine is 1.8. GFR is 37. Repeat blood cultures are pending. ASSESSMENT AND PLAN: Patient has methicillin-resistant Staph aureus bacteremia for which I am going to treat him with daptomycin. Dr. Solomon has ordered a transesophageal echocardiogram to see if the patient has endocarditis. Because of the patient's elevated creatinine, we will not be able to get an MRI with contrast to determine if the patient has osteomyelitis. Because of that I am going to get on patient a 3-phase bone scan on the left ankle. The patient has blood cultures that are pending. COMORBIDITIES: The patient is elderly. He is a diabetic. He has had a myocardial infarction and he also has coronary artery disease. cc: Abhijeet Saucedo MD
[2019-02-27] MEDS: TYLENOL PO PRN (00:26)
[2019-02-27] MEDS: LOVENOX SUBQ SCH ×2 (04:34→17:09)
[2019-02-27] MEDS: HUMULIN R (PARKWAY) SUBQ SCH ×4 (06:21→20:16)
[2019-02-27 07:29] LABS: INR 1.33; PROTIME 16.8 Seconds (11.0-16.0)
[2019-02-27 07:39] LABS: ALBUMIN 2.5 g/dL (3.5-5.0); CALCIUM 8.5 mg/dL (8.8-10.2); CREATININE 1.5 mg/dL (0.7-1.2); MAGNESIUM 2.2 mg/dL (1.5-2.7); PHOSPHORUS 2.7 mg/dL (2.7-4.5); POTASSIUM 3.7 mmol/L (3.5-5.1)
[2019-02-27 08:08] LABS: BASO# 0.01 X1000 (0.0-0.2); BASO% 0.1 % (0.0-0.8); EOS# 0.05 X1000 (0.0-0.7); EOS% 0.7 % (0.0-10.0); HEMATOCRIT 28.9 % (42.0-52.0); HEMOGLOBIN 10.1 g/dL (14.0-18.0); IMM GRAN# 0.17 X1000 (0.0-0.04); IMM GRAN% 2.5 % (0.0-0.5); LYMPH# 0.95 X1000 (1.2-3.4); MCH 24.3 PG (27-31); MCHC 34.9 g/dL (33-37); MCV 69.6 FL (81-99); MONO# 0.94 X1000 (0.11-0.59); MONO% 13.8 % (1.7-9.3); MPV 10.9 FL (7.4-10.4); NEUT# 4.68 X1000 (1.4-6.5); NEUT% 68.9 % (42.2-75.2); PLT 180 X1000 (130-400); RBC 4.15 XMIL (4.7-6.1); RDW 18.2 % (11.5-14.5)
[2019-02-27 08:35] LABS: BANDS 2 % (0-1); LYMPHS 16 % (21-51); MONO 10 % (1-9); SEGS 72 % (42-75)
[2019-02-27 08:36] LABS: ANISOCYTOSIS 1+; HYPOCHROM 1+; MICROCYTOSIS 2+
--- NOTE | 2019-02-27 08:48 | INFECTIOUS DISEASE PROGRESS NO ---
DATE: 02/27/2019 PRESENT ILLNESS: The patient has a methicillin-resistant Staph aureus bacteremia which I think originated from the patient's fall on his knees. He also appears to have a left ankle osteomyelitis and pneumonia. Repeat blood cultures are positive for gram- positive cocci which almost certainly will be methicillin-resistant Staph aureus. MEDICATIONS: The patient is on daptomycin. PHYSICAL EXAMINATION: Vital Signs: Temperature earlier was 102 now it is 98.2, pulse 107, respirations 17, blood pressure 125/75. General: This is an ill-appearing and also lethargic elderly male. He is in no acute distress. Head, eyes, ears, nose, and throat: He can hear my spoken words and see near objects. I did not notice any white patches in his mouth. Neck: No pain with movement. Lungs: Clear to auscultation. Cardiovascular: Heart rate is irregular. Abdomen: Soft and nontender. Extremities: The patient's left ankle remains swollen, tender and painful when moved. Neurologic: The patient is lethargic today. He did talk in a coherent factor and he did follow request to move his extremities. He does not have a tremor. LAB AND X-RAY: The patient's CBC is pending. Liver function studies are normal except for AST minimally elevated at 38. Repeat blood cultures from February 26 are already growing a gram- positive cocci which almost certainly will be methicillin-resistant Staph aureus. Creatinine is 1.5. GFR is 46. CT scan shows a right lung pneumonia ASSESSMENT AND PLAN: Patient has a methicillin-resistant Staph aureus bacteremia for which he is being treated with daptomycin. His repeat blood cultures are positive for gram- positive coccus. I have ordered the patient to be started on rifampin 600 mg p.o. daily. Some of the side effects of rifampin including liver toxicity and discoloration of the urine have been explained to the patient who agrees with treatment. I told the patient with daptomycin the biggest problem is muscle toxicity and the patient agreed to treatment with that antibiotic also. Today the patient is going to have a transesophageal echocardiogram to look for the presence of endocarditis and a 3 phase bone scan to see if the patient's left ankle and foot have osteomyelitis. Because the patient's creatinine is elevated, we will not be able to use an MRI with contrast. Zyvox has been started to treat the patient's right lung pneumonia. COMORBIDITIES: The patient is elderly he also is a diabetic. The patient has had a myocardial infarction. He also has coronary artery disease. cc: Abhijeet Saucedo MD MTDD
[2019-02-27] MEDS: ZYVOX PO SCH ×2 (09:22→20:16)
[2019-02-27] MEDS: TOPROL XL PO SCH ×2 (09:22→20:16)
[2019-02-27] MEDS: ASPIRIN PO SCH (09:22)
[2019-02-27] MEDS: PRILOSEC PO SCH ×2 (09:23→20:16)
[2019-02-27] MEDS: RIFAMPIN PO SCH (09:23)
[2019-02-27] MEDS: COZAAR PO SCH (09:23)
[2019-02-27] MEDS: CORDARONE PO SCH (09:24)
[2019-02-27] MEDS: MIRALAX PO SCH (09:24)
[2019-02-27] MEDS ORDERED: DIPRIVAN 1% ONE (10:19)
--- NOTE | 2019-02-27 11:14 | PROGRESS NOTE ---
DATE: 02/27/2019 SUBJECTIVE: This morning Mr. Tello refers to be doing fairly okay. No new complaints. The was at the bedside at the time of the encounter. OBJECTIVE: Vital Signs: Blood pressure 121/78, pulse of 114,respirations 18, and temperature 97.8 degrees. The patient was saturating 99% on room air. The patient's T-max has been 102 early this morning. General: Mr. Tello is a 73-year-old elderly male. He is in bed in no distress. HEENT: Mucosa is pink and moist. Anicteric. Acyanotic. Neck: Supple. Respiratory: There is good air entry bilaterally. Few crackles in the posterior lung helms. Cardiovascular: Irregularly irregular and mildly tachycardic. There is an old sternotomy scar on the anterior chest wall. Gastrointestinal: Abdomen is soft. Extremities: No pedal edema. Minimal bruises over both knees. The left ankle continues to be very tender. MANAGER NEW PRODUCT: Patient is awake, and follows basic commands. LABORATORY DATA: WBC is 6.80, hemoglobin is 10.1, and platelet count of 180,000. Chemistry is also reviewed. Creatinine continues to be 1.5 which is baseline. The patient's urine output is 1100 this morning. So far, repeat blood culture continues to be positive. ASSESSMENT: 1. Sepsis with persistent MRSA bacteremia. Patient is on daptomycin. Rifampin has been added. 2. Multifocal right lung pneumonia. The patient is currently on Zyvox, but this was started today. 3. Left ankle pain concerning for osteomyelitis/septic arthritis. Orthopedics is on board. MRI was ordered. However, because of patient's kidney function, it was discontinued. A bone scan has been ordered. 4. Acute on chronic renal failure. Patient is making adequate urine. The creatinine continues to be fairly the same. 5. Paroxysmal atrial fibrillation with rapid ventricular response. We will continue with medications. 6. Elevated troponin's on presentation, presumably demand ischemia. 7. Altered mental status with hallucination due to delirium resolved. The patient seems to have some underlying dementia. 8. Congestive heart failure with ejection fraction of 40% associated with global hypokinesis on echo. The patient is euvolemic. 9. 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 10. Mild rectal wall thickening on CT scan concerning for proctitis. The patient is asymptomatic. PLAN: So in general, I think Mr. Tello is clinically stable. Blood cultures from yesterday continues to be positive for gram-positive cocci, which we think is the same MRSA. Rifampin has been added to the daptomycin. We are still pending a LIZETH today, and also a bone scan of the left lower extremity today. cc: Jamie Solomon MD MTDD
[2019-02-27] MEDS ORDERED: ANESTHESIA PB SET 88 IN 5742 ONE (12:08)
[2019-02-27] MEDS ORDERED: NS 1,000 ML ONE (12:08)
[2019-02-27] MEDS ORDERED: CLAVE TWINSITE 32 IN 11959 ONE (12:08)
--- NOTE | 2019-02-27 14:44 | Diag Imaging Result Doc PS360 ---
EXAM: 3 PHASE BONE SCAN 02/27/2019 HISTORY: L ankle and foot osteomyelitis TECHNIQUE: 31.4 mCi of technetium 99m MDP with three phase scanning over the feet and ankles. COMMENT: There is intense increased static bone activity in the talus, distal tibia, calcaneus and possibly in the tarsal navicular on the left. There is increased flow activity throughout the foot and ankle on the left and increased blood pool activity is also present in the left foot and ankle. IMPRESSION: The possibility of osteomyelitis/septic arthritis in the ankle and hindfoot cannot be excluded. Advise correlation with plain radiographs. Electronically signed by Sonido Oden 02/27/2019 2:42 PM
--- NOTE | 2019-02-27 14:57 | Diag Imaging Result Doc PS360 ---
EXAM: FOOT COMPLETE LEFT 02/27/2019 HISTORY: fracture TECHNIQUE: Three views COMMENT: There is what appears to be an old fracture of the calcaneus. There is extensive subchondral cyst formation on both sides of the subtalar joint. There is hypertrophic change in the distal tibia. Some degenerative changes present in the talonavicular joint. No definite erosions are otherwise demonstrated. There is considerable soft tissue swelling on both the anterior and posterior aspects of the ankle and foot. Overall the appearance of the bones are most consistent with posttraumatic change and osteoarthritis rather than osteomyelitis. The possibility of cellulitis cannot be excluded however. 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 Electronically signed by Sonido Oden 02/27/2019 2:55 PM
[2019-02-27] MEDS: CUBICIN 500 MG in NS 100 ML IV SCH (15:21)
[2019-02-28] MEDS: LOVENOX SUBQ SCH ×2 (04:27→17:22)
[2019-02-28] MEDS: HUMULIN R (PARKWAY) SUBQ SCH ×4 (06:21→21:09)
[2019-02-28 07:09] LABS: INR 1.49; PROTIME 18.3 Seconds (11.0-16.0)
[2019-02-28] MEDS: ASPIRIN PO SCH (08:26)
[2019-02-28] MEDS: RIFAMPIN PO SCH (08:26)
[2019-02-28] MEDS: COZAAR PO SCH (08:26)
[2019-02-28] MEDS: ZYVOX PO SCH ×2 (08:26→21:09)
[2019-02-28] MEDS: CORDARONE PO SCH (08:26)
[2019-02-28] MEDS: PRILOSEC PO SCH ×2 (08:26→21:09)
[2019-02-28] MEDS: TYLENOL PO PRN (08:27)
[2019-02-28] MEDS: TOPROL XL PO SCH ×2 (08:27→21:09)
[2019-02-28] MEDS: MIRALAX PO SCH (08:43)
--- NOTE | 2019-02-28 10:52 | INFECTIOUS DISEASE PROGRESS NO ---
DATE: 02/28/2019 PRESENT ILLNESS: The patient has a methicillin-resistant Staph aureus bacteremia, pneumonia, and possible ankle septic arthritis and osteomyelitis. MEDICATIONS: The patient is on daptomycin, rifampin and Zyvox. PHYSICAL EXAMINATION: Vital Signs: Temperature maximum was 100.2 now it is 97.6, pulse is 113 respirations 20, blood pressure 139/82. General: This is a ill-appearing elderly male. He is in no acute distress. Head, eyes, ears, nose, and throat: He can hear my spoken words and see near objects. I did not notice any white coating of his tongue. Neck: No pain with movement of the neck. Lungs: Clear to auscultation. Cardiovascular: Heart rate is irregular. Abdomen: Soft and nontender. Extremities: The patient's left ankle and foot are still swollen and tender. Neurologic: The patient is awake today. He can move his extremities. He does not have a tremor. LAB AND X-RAY: Transesophageal echocardiogram showed that there was no endocarditis. The patient's repeat blood cultures are growing a gram-positive coccus, which almost certainly will be methicillin-resistant Staph aureus. The patient's triple phase bone scan showed possible osteomyelitis and/or septic arthritis involving the left ankle. The patient also on CT scan was found to have a right-sided pneumonia, which almost certainly would be secondary to methicillin- resistant Staph aureus also. Today there is no CBC or BMP. Tomorrow I have ordered repeat blood cultures. As mentioned the transesophageal echocardiogram did not show any vegetations suggestive of osteomyelitis. ASSESSMENT/PLAN: I yesterday added rifampin and hopefully between the rifampin and the daptomycin and also Zyvox has good activity against methicillin-resistant Staph aureus. Between these 3 antibiotics hopefully, the blood repeat blood cultures which I have ordered for tomorrow will be negative. As regarding the patient's possible septic arthritis and osteomyelitis, I have called Dr. Nuñez, who saw the patient earlier and he said he was going to call Dr. Feldman to see the patient and to see if anything needs to be done from a surgical point of view. I am going to continue the daptomycin and rifampin for at least 8 weeks because the patient has methicillin- resistant possible osteomyelitis and septic arthritis. As regarding the Zyvox I am going to continue that until the patient's x-ray or CT scan will show that the pneumonia has cleared. COMORBIDITIES: The patient is an elderly diabetic. He has had a myocardial infarction. cc: Abhijeet Saucedo MD
--- NOTE | 2019-02-28 11:40 | PROVIDER DOCUMENTATION ---
This chart was entered by Vannessa Lam Scribe, acting as scribe for Brian Edwards MD. [facility]-General Adult - General Chief Complaint: SEPSIS ALERT - P Stated Complaint: SEPTIC Time Seen by Provider: 02/22/19 15:20 Source: patient Allergies/Adverse Reactions: Patient Allergies Allergy/AdvReac Type Severity Reaction Status Date / Time Iodinated Contrast Media Allergy Unknown Unknown Verified 04/21/17 00:59 Home Medications: Home Medication List Medication Instructions Recorded Confirmed Last Taken Type Lisinopril 10 mg PO QHS 03/01/14 04/21/17 04/20/17 History Metformin [Glucophage] 500 mg PO BID 03/01/14 02/22/19 04/20/17 History PRAVAstatin [Pravachol] 20 mg PO QHS 03/01/14 02/22/19 04/20/17 History Pioglitazone [Actos] 15 mg PO DAILY 03/01/14 02/22/19 04/20/17 History Sitagliptin Phosphate [Januvia] 100 mg PO QHS 03/01/14 02/22/19 04/20/17 History Warfarin [Coumadin] 5 mg PO QHS #0 tablet 03/03/14 02/22/19 04/20/17 Rx Metoprolol Succinate E.r. [Toprol 50 mg PO BID 10/26/14 02/22/19 04/20/17 History Xl] Omeprazole [Prilosec] 20 mg PO BID #60 capsule 10/27/14 02/22/19 04/20/17 Rx Amiodarone [Cordarone] 400 mg PO DAILY 04/21/17 02/22/19 04/20/17 History Losartan Potassium 50 mg PO DAILY 02/22/19 02/22/19 Unknown History - History of Present Illness -Gen Adult Nature of Presenting Problems: Patient is a 73 year old male who presents to the ED via EMS with weakness, nausea, vomiting and fever. States symptoms have been present for 4 days. Reports being seen at [facility] 6 days ago. States he has not taken his medication in 3 days. Location of Pain/Injury: reports: none Pain Radiation: reports: no radiation Quality of Pain: reports: none Severity: reports: mild Onset/Duration: reports: 4 days ago Timing: reports: still present Context/Activities at Onset: reports: light activity Associated Symptoms: reports: fever/chills (fever), nausea, vomiting, weakness Similar Symptoms Previously?: Yes Recently seen or treated by another doctor?: Yes Review of Systems - Adult - REVIEW OF SYSTEMS - ADULT Constitutional: reports: see HPI, fever. denies: chills, fatique Eyes: reports: no symptoms reported Ears, Nose, Mouth & Throat: reports: no symptoms reported Cardiovascular: reports: no symptoms reported Respiratory: reports: no symptoms reported Gastrointestinal: reports: see HPI, nausea, vomiting. denies: abdominal pain, diarrhea Genitourinary: reports: no symptoms reported Musculoskeletal: reports: see HPI, muscle weakness. denies: back pain, neck pain Integumentary: reports: no symptoms reported Neurological: reports: no symptoms reported Psychiatric: reports: no symptoms reported Endocrine: reports: no symptoms reported Hematologic/Lymphatic: reports: no symptoms reported Allergic/Immunologic: reports: no symptoms reported All Other Systems: Reviewed and Negative Past History - Adult - PAST MEDICAL HISTORY-ADULT Review of Records: reports: Old Records Reviewed, Nursing Assessment Review, Medications Reviewed, Social history reviewed & non-contributory. Major Childhood Illnesses: reports: denies history Cardiovascular: reports: A-Fib, HTN, hyperlipidemia, other (bypass) Respiratory: reports: denies history Gastrointestinal: reports: GERD Obstetrical/Gynecological: reports: denies history Genitourinary: reports: denies history Musculoskeletal: reports: denies history Neurological: reports: denies history Endocrine/Immune: reports: Diabetes Other Conditions: reports: denies history - PRIOR SURGERIES/PROCEDURES Surgical/Procedure History: reports: CABG, orthopedic (extremity) (ankle surger y), other (cardiac bypass) - IMMUNIZATION STATUS Childhood Immunizations: See Nurse Assessment Flu Vaccine: See Nurse Assessment - FAMILY HISTORY Family History: reviewed, not pertinent - SOCIAL HISTORY Smoking: cigarettes (former) Substance Use: denies Physical Exam-General - PHYSICAL EXAM-ADULT Initial Vital Signs Reviewed: Yes - CONSTITUTIONAL General Appearance: alert, no apparent distress. negative: lethargic - RESPIRATORY Respiratory: chest non-tender, lungs clear, normal breath sounds. negative: crackles, rales - CARDIOVASCULAR Cardiovascular: normal peripheral pulses, tachycardia, irregularly irregular. negative: systolic murmur - GASTROINTESTINAL (ABDOMEN) Abdominal Exam: normal bowel sounds, non tender, soft. negative: guarding, rigid - MUSCULOSKELETAL Extremity: swelling (bilateral knees), other (abrasion to bilateral knees). negative: deformity - SKIN Integumentary: normal color, normal turgor, warm/dry, abrasion(s) (bilateral knees), swelling (bilateral knees). negative: laceration(s) - NEUROLOGIC Neurologic: grossly normal. negative: aphasia, facial droop - PSYCHIATRIC Psych/Mental Status: normal mood/affect, oriented x 3. negative: anxious Progress - PLAN OF CARE/RESULTS Progress/Plan/Lab Results: Vital Signs - 8 hr 02/22/19 14:39 Temperature 99.9 F H Pulse Rate 105 H Respiratory Rate 20 Blood Pressure 107/62 O2 Sat by Pulse Oximetry 94 L Laboratory Results - last 24 hr 02/22/19 14:43 WBC 6.11 RBC 4.46 L Hgb 10.8 L Hct 33.3 L MCV 74.7 L MCH 24.2 L MCHC 32.4 L RDW Std Deviation 18.9 H Plt Count 81 L D MPV Not Reportable Immature Gran % (Auto) 2.0 H Neut % (Auto) 84.3 H Lymph % (Auto) 5.6 L [place] % (Auto) 7.9 Eos % (Auto) 0.0 Baso % (Auto) 0.2 Immature Gran # (Auto) 0.12 H Neut # (Auto) 5.16 Lymph # (Auto) 0.34 L [place] # (Auto) 0.48 Eos # (Auto) 0.00 Baso # (Auto) 0.01 Orders Category Date Time Status Cardiac Monitoring DIRECTED Care 02/22/19 14:54 Active IV Insertion ORDERED Care 02/22/19 14:54 Completed Notify MD of + Sepsis Screen NOW Care 02/22/19 14:54 Active Notify Physician As Ordered Care 02/22/19 14:54 Active CHEST-1 VIEW [RAD] Stat Exams 02/22/19 14:54 Completed ABG [RESP] Routine Lab 02/22/19 14:55 Ordered BLOOD CULTURE [BLDCUL] Stat Lab 02/22/19 14:54 Uncollected CBC WITH DIFF [HEME] Stat Lab 02/22/19 14:43 Completed CK PROFILE [SP CHEM] Stat Lab 02/22/19 14:43 Received COMPREHENSIVE METABOLIC PANEL [CHEM] Stat Lab 02/22/19 14:43 Received LACTATE, PLASMA [CHEM] Lab 02/22/19 18:00 Uncollected LACTATE, PLASMA [CHEM] Lab 02/22/19 21:00 Uncollected LACTATE, PLASMA [CHEM] Stat Lab 02/22/19 14:43 Received MAGNESIUM [CHEM] Stat Lab 02/22/19 14:43 Received PROTIME WITH INR [COAG] Stat Lab 02/22/19 14:43 Received PTT [COAG] Stat Lab 02/22/19 14:43 Received TROPONIN T Stat Lab 02/22/19 14:[address] W/POSS RFLX CULT [URINALYSIS] Stat Lab 02/22/19 14:54 Uncollected Oxygen Device Stat Oth 02/22/19 14:54 Active Result Diagrams: 02/22/19 14:43 02/22/19 14:43 - EKG 1 Time of EKG reading by physician:: 15:32 EKG Read and Signed by:: Brian Edwards EKG Interpretation (*Must complete 3 of following elements*): Abnormal (T wave abnormality, consider lateral ischemia) Rate: 113 Rhythm: atrial fibrillation with rapid ventricular response [place]: normal QRS: LVH (with QRS widening) Comments: inferior infarct, age undetermined; - XRAY 1 XRAY Study: Chest Impression: See EMR Report ( EXAM: CHEST-1 VIEW HISTORY: sepsis protocol TECHNIQUE: Chest single view COMPARISON: 02/20/2019 FINDINGS: Poor inspiratory effort. The heart is not enlarged. There are sternal wires. The vessels are not distended. There are no infiltrates. No effusion identified. IMPRESSION: No pneumonia. Electronically signed by Koko Navarro 02/22/2019 3:14 PM 02/22/19 1514 Interpreting Physician: Koko Navarro MD Dictated Date/Time: 02/22/19 1513 cc: Brian Edwards MD;) - CONSULTS/PCP/HOSPITALIST Notification #1 *Consult/PCP/Hospitalist*: Dr. Urena Time Discussed: 16:01 Reason/Comments: Dr. Edwards consulted with Dr. Urena about patient. Consult Disposition: Will see in ED, Admit #2 Consult: Dr. Bailey Time Discussed: 16:15 Reason/Comments: Dr. Edwards consulted with Dr. Edwards about patient. Departure - Departure Date of Disposition Decision: 02/22/19 Time of Disposition Decision: 15:59 DIAGNOSIS: Sepsis, Altered mental status, NSTEMI (non-ST elevated myocardial infarction) Disposition: ADMITTED INPATIENT 09 Certified Medical Emergency: Emergent Condition: Fair Referrals and Follow-Ups: None,PCP [Primary Care Provider] - - Critical Care Note This patient required my direct & personal management of CC.: Yes Total Time (mins): 36 Critical Care Statement: This patient required my direct personal management to treat or rule out processes, the absence of which, could potentiallly result in sudden, clinically significant life or limb threatening deterioration. Attestation - Physician/ DAYANARA Attestation The physician spent face to face time with patient:: Yes Advanced Practice Provider documentation review:: Supervising physician onsite and consulted in the evaluation and care of this patient. The physician did have a face to face encounter with the patient. This chart was documented by the indicated scribe, (Vannessa Lam Scribe) and accurately reflects the services I performed and decisions made by me, Brian Edwards MD, as attested by the provider's signature.
[2019-02-28] MEDS: CUBICIN 500 MG in NS 100 ML IV SCH (14:00)
[2019-02-28] MEDS: COLCRYS PO SCH ×2 (14:00→21:09)
[2019-02-28 17:24] LABS: BODY FLUID SOURCE SYNOVIAL FLUID
[2019-02-28 17:25] LABS: MONOS 2 %; POLYS 98 %; WBC BF 74570 /cumm
--- NOTE | 2019-02-28 17:46 | PROGRESS NOTE ---
DATE: 02/28/2019 Today Mr. Tello referred to be doing fairly okay. Denies any new complaints. Still hurting in the left ankle and the right shoulder. Mr. Tello' did tell me yesterday that Mr. Tello has also been having swelling of the big toes every now and then. Sometimes it is associated with some milky substance coming out of the joint. This makes me think of possible gout. OBJECTIVE: Vital signs: Blood pressure is 136/72, pulse of 101, respirations of 17, temperature 97.6 degrees. General: Mr. Tello is a 73-year-old gentleman. He is in bed. He is not in any cardiopulmonary distress. HEENT: Mucosa is pink and moist. Anicteric. Acyanotic. Neck: Supple. Chest: Clear to auscultation. Cardiovascular: Irregularly irregular but rate controlled. There is an old sternotomy scar on the anterior chest wall. Gastrointestinal: Abdomen is soft, nontender. Bowel sounds present. Extremities: No pedal edema. There are some bruises over the knees, but they look dry. Left ankle continues to be very tender. The patient is also tender mobilizing the right upper extremity. CT SCAN TECHNICIAN: Patient is awake and alert. He seems to have some baseline cognitive decline. LABORATORY DATA: Glucose was 200. No CBC. CURRENT MEDICATIONS: Have all been reviewed. ASSESSMENT: 1. Sepsis with persistent methicillin-resistant Staphylococcus aureus bacteremia. Patient has been started on daptomycin and rifampin. A LIZETH yesterday was done which I have been told is negative for any vegetation. We are still waiting for the official report. 2. Multifocal right lung pneumonia, presumably MRSA as well. The patient is on Zyvox. 3. Left ankle pain concerning for osteomyelitis/septic arthritis. Orthopedics has been consulted. There is also a very legitimate concern that this could be a flare-up of gout. The patient has been started on colchicine and allopurinol. 4. Acute on chronic renal failure, stable. Patient continues making adequate urine. 5. Paroxysmal atrial fibrillation with rapid ventricular rate. Heart rate is better controlled. 6. Elevated troponin on presentation, presumably demand ischemia. However, an underlying ST- elevation myocardial infarction cannot be completely ruled out. Cardiology is on board. 7. Delirium during the hospital course, resolved. 8. Dementia. 9. Ischemic heart disease status post CABG with congestive heart failure, ejection fraction of 40%, with global hypokinesis on echo. Patient is currently euvolemic. 10. Mild rectal wall thickening on CT scan concerning for proctitis. The patient is asymptomatic. PLAN: So in general, I think Mr. Tello is clinically stable. He continues to be on IV antibiotics. Repeat blood cultures from the 2nd continues to show positive MRSA. Rifampin was added yesterday, so we are going to wait another 48 to 72 hours and repeat the blood cultures and go from there. cc: Jamie Solomon MD
[2019-02-28] MEDS: ZYLOPRIM PO SCH (21:09)
--- NOTE | 2019-02-28 22:12 | ORTHOPAEDICS CONSULTATION ---
DATE: 02/28/2019 CHIEF COMPLAINT: Left foot pain. HISTORY OF PRESENT ILLNESS: Mr. Tello is a 73-year-old male who recently had been admitted to the hospital for sepsis. Blood cultures revealed methicillin-resistant Staphylococcus aureus. They have not found a source of the infection yet, but suspected left foot as being the source. He had a previous trauma around 40 years ago. It sounds like a calcaneal fracture that he has not done great with over the years. Now he is and he recently had some pain and fevers. He came to the hospital and was admitted. Dr. Saucedo has been seeing him and has him on triple antibiotic as of now. My partner, Dr. Nuñez, saw him, and discussed this case with me and wanted me to evaluate from a foot and ankle standpoint. PAST MEDICAL HISTORY: Diabetes. Hypertension. Atrial fibrillation; he is on Coumadin. Coronary artery disease and hyperlipidemia. PAST SURGICAL HISTORY: Coronary artery bypass grafting and right ankle surgery. SOCIAL HISTORY: He denies any alcohol use. ALLERGIES: Contrast media. HOME MEDICATIONS: Per the medical record. REVIEW OF SYSTEMS: Positive for left foot pain and sepsis. All other systems are essentially negative. PHYSICAL EXAMINATION: General: Elderly appearing male lying in bed. He is in no acute distress right now. Head and Neck: Normocephalic, atraumatic. Respirations: Nonlabored breathing. Cardiovascular: He had regular pulses in his feet. Abdomen: Nondistended. Extremities: Left lower extremity exam. He has some erythema laterally. There is not a lot of swelling present though. He does have some tenderness to palpation laterally. I do not see any open sores except for a little bit distal on the foot which looked to be more scabs. He does have a 2+ DP pulse and decreased sensation to the toes. 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 A CT scan reveals a lot of subchondral cysts and a lot of osteoarthritic changes at the subtalar joint. ASSESSMENT: Suspected left subtalar joint septic arthritis. PLAN: I discussed with Mr. Tello about doing a subtalar aspiration today. After verbal consent was obtained, I cleaned the skin on the lateral aspect of the hindfoot with alcohol and let air dry. An 18-gauge needle was then used to aspirate the subtalar joint. We got gross purulent fluid out about 10 mL, and we sent that off to the lab for culture and Gram stain and cell count. The patient tolerated the procedure well with no complications. I discussed with Mr. Tello that it does look infected, so we will plan on performing irrigation and debridement of the subtalar joint tomorrow. He will be n.p.o. after midnight tonight. I went over with him the procedure, risks, benefits, potential complications. Risks include, but are not limited to infection, wound healing problems, damage to nerves, arteries, veins, numbness, continued infection, blood clots and anesthesia-related risks. After discussing these with the patient, he expressed understanding and wished to proceed. cc: Matthew Feldman MD
[2019-02-28] MEDS: NS 1,000 ML IV SCH (23:26)
--- NOTE | 2019-03-01 01:20 | ECHO REPORT ---
ORDER DATE: 02/27/2019 SUMMARY: After intravenous sedation per Anesthesiology with propofol, I passed transesophageal echocardiography probe into the patient's esophagus without difficulty. Transesophageal echocardiography was subsequently performed without incident and demonstrated: 1. Mild sclerosis of trileaflet aortic valve demonstrated with normal aortic valve opening evident. Mitral, tricuspid and pulmonic valves are without evidence of structural abnormality with mild mitral regurgitation and mild tricuspid regurgitation. Aortic root is normal size. 2. Normal left ventricular dimensions suggested. Estimated left ventricular ejection fraction approximately 40% to 45%. There is akinesis of the most basal region of the inferior wall. No other wall motion abnormalities are evident. Left atrium is moderately enlarged. The right atrium and right ventricle are normal in size with grossly preserved right ventricular systolic function. Spontaneous contrast is evident in the left atrium. All 4 cardiac chambers and left atrial appendage appear free of intracardiac thrombus. 3. No pericardial effusion. 4. Interatrial septum appears intact without evidence of interatrial shunting on color Doppler. Intravenous agitated saline contrast study reveals no evidence of [id number] intracardiac shunting. 5. No pericardial effusion. 6. Left pleural effusion noted. cc: MD Berta Mcclure PA
[2019-03-01] MEDS: LOVENOX SUBQ SCH ×2 (04:54→16:53)
[2019-03-01] MEDS: HUMULIN R (PARKWAY) SUBQ SCH ×4 (06:33→22:10)
--- NOTE | 2019-03-01 07:13 | INFECTIOUS DISEASE PROGRESS NO ---
DATE: 03/01/2019 PRESENT ILLNESS: The patient has a methicillin-resistant Staph aureus bacteremia, pneumonia, and septic ankle arthritis and osteomyelitis. MEDICATIONS: The patient is on a combination of daptomycin, rifampin and Zyvox. PHYSICAL EXAMINATION: Vital Signs: Temperature is 98.6 degrees, pulse 110, respirations 26, blood pressure is 132/79. General: This is an ill-appearing elderly male. He is in no acute distress. Head, Eyes, Ears, Nose and Throat: He can hear my spoken words and see near objects. I did not notice any white patches in his mouth. Neck: He does not have any pain with movement of the neck. Lungs: Clear to auscultation. Cardiovascular: Heart rate is irregular. Abdomen: Soft and nontender. Extremities: The left ankle remains swollen, tender, and painful whenever the ankle is moved. Neurologic: Today patient is more alert. He can move his extremities. He does not have a tremor. LAB AND X-RAY STUDIES: The patient is having blood cultures drawn today. The patient had aspiration of the ankle by Dr. Feldman. The white blood cell count of the ankle aspirate was 74,570 white cells of which 98% were polymorphonuclear. The patient's transesophageal echocardiogram shows no vegetations on the valves. There is no CBC or BMP back yet. ASSESSMENT AND PLAN: I plan to continue daptomycin, Zyvox and rifampin. The patient today is going to have surgery on his ankle performed by Dr. Feldman. Blood cultures will be drawn tomorrow morning. There is no new radiographic study back either. I plan to continue with the current antibiotics, namely daptomycin, rifampin and Zyvox. For tomorrow CBC, a renal profile and blood cultures will be drawn. I am going to also order a CK level because the patient is on daptomycin and it can cause muscle toxicity. COMORBIDITIES: Include he is older, he is a diabetic and he has had a myocardial infarction. cc: MD DEBBIE Mayer
[2019-03-01 08:11] LABS: HEMATOCRIT 28.7 % (42.0-52.0); HEMOGLOBIN 9.7 g/dL (14.0-18.0); MCH 24.7 PG (27-31); MCHC 33.8 g/dL (33-37); MPV 10.5 FL (7.4-10.4); RBC 3.93 XMIL (4.7-6.1); RDW 19.1 % (11.5-14.5); WBC 9.26 X1000 (4.8-10.8)
[2019-03-01 08:21] LABS: ALBUMIN 2.5 g/dL (3.5-5.0); CREATININE 1.6 mg/dL (0.7-1.2); POTASSIUM 3.9 mmol/L (3.5-5.1)
[2019-03-01] MEDS: TOPROL XL PO SCH ×2 (08:30→22:10)
[2019-03-01] MEDS ORDERED: DECADRON ONE (10:31)
[2019-03-01] MEDS ORDERED: XYLOCAINE-MPF 2% ONE (10:31)
[2019-03-01] MEDS ORDERED: FENTANYL ONE (10:31)
[2019-03-01] MEDS ORDERED: DIPRIVAN 1% ONE (10:31)
[2019-03-01] MEDS ORDERED: ZOFRAN ONE (10:31)
[2019-03-01] MEDS ORDERED: ROBINUL ONE (10:31)
[2019-03-01] MEDS ORDERED: SODIUM CHLORIDE 0.9% 10 ML ONE (10:38)
[2019-03-01] MEDS ORDERED: NEO-SYNEPHRINE ONE (10:38)
[2019-03-01] MEDS: ZYVOX PO SCH ×2 (12:24→22:10)
[2019-03-01] MEDS: RIFAMPIN PO SCH (12:24)
[2019-03-01] MEDS: MIRALAX PO SCH (12:25)
[2019-03-01] MEDS: CORDARONE PO SCH (12:25)
[2019-03-01] MEDS: ASPIRIN PO SCH (12:25)
[2019-03-01] MEDS: COZAAR PO SCH (12:25)
[2019-03-01] MEDS: ZYLOPRIM PO SCH ×2 (12:26→22:10)
[2019-03-01] MEDS: COLCRYS PO SCH ×2 (12:26→22:10)
[2019-03-01] MEDS: PRILOSEC PO SCH ×2 (12:26→22:10)
[2019-03-01] MEDS: NS 1,000 ML IV SCH ×2 (14:41→18:21)
[2019-03-01] MEDS: CUBICIN 500 MG in NS 100 ML IV SCH (14:51)
--- NOTE | 2019-03-01 19:47 | OPERATIVE NOTE ---
PROCEDURE DATE: 03/01/2019 PREOPERATIVE DIAGNOSIS: Left subtalar joint septic arthritis. POSTOPERATIVE DIAGNOSIS: Left subtalar joint septic arthritis. PROCEDURE PERFORMED: Left subtalar arthrotomy with irrigation and debridement. SURGEON: Matthew Feldman MD SECOND CAGE MAKER: JOEY Ferguson, whose was an integral part of the case helping with all aspects of the case and helping to increase our OR efficiency greatly. ANESTHESIA: General with LMA. TOURNIQUET TIME: Less than 30 minutes. SPECIMENS/PATHOLOGY: Cultures were taken and sent to the lab. IMPLANTS: No implants. DISPOSITION: To PACU, hemodynamically stable. INDICATIONS FOR PROCEDURE: Mr. Tello is a 73-year-old male who I have seen up on the floor here in the hospital. I aspirated his subtalar joint yesterday and got pus out, so I discussed with him about irrigation and debridement of the subtalar joint. He expressed understanding and wished to proceed. DESCRIPTION OF PROCEDURE: Mr. Tello was identified in the preoperative holding area. The left foot was marked as correct surgical site. He was then wheeled to the operating room, placed supine on the operating room table. All bony prominences were well padded. He was induced under general anesthesia. LMA was placed. Tourniquet was placed to the left thigh. Left lower extremity was then prepped with chlorhexidine gluconate scrub and then ChloraPrep and draped in normal sterile fashion. Surgical pause was performed. We identified the correct patient, correct side, and the correct procedure. Preop antibiotics were given. Tourniquet was inflated to 300 mmHg without the use of an Esmarch. I started with a sinus tarsi incision. Dissection was carried down to the subtalar joint. Once we got through the subtalar joint, there was a lot of purulent fluid that was there. We cultured it and then used suction to suck out all of the purulence that was there. I probed around a lot on the soft tissue, but I did not feel any areas of abscess. I did not feel the infection went out into the soft tissues a lot at all, and there was no cartilage on the subtalar joint, and it was all exposed. I did not feel that the bone was soft or eaten away as an osteomyelitis, so we irrigated the joint copiously with normal saline. After that, I felt we had had a really good debridement. I did use a rongeur to get any of the loose tissue that was in that area out and debrided, and we irrigated everything copiously with normal saline again, and everything looked nice and clean at that point. We then closed it with 2- 0 Maxon and nylon, and a soft dressing was applied. He was then awoken from general anesthesia, moved onto the bed and taken to the PACU in stable condition. PLAN: Postoperatively, he will be nonweightbearing to the left lower extremity, and we will continue to follow. He is on IV antibiotics per Infectious Disease recommendations. cc: Matthew Feldman MD
--- NOTE | 2019-03-01 21:08 | PROGRESS NOTE ---
DATE: 03/01/2019 SUBJECTIVE: Today, Mr. Tello refers to be doing okay. He just came out of the exploration of the left ankle yesterday. Patient was evaluated by Dr. Feldman and a bedside aspiration of the left ankle was done, and it appears that there was purulence obtained. OBJECTIVE: Current Vital Signs: Blood pressure is 127/81, pulse of 100, respiration is 18, temperature is 97.4 degrees. General: Mr. Tello is a 73-year-old, elderly male. He is in bed, in no distress. HEENT: Mucosa is pink and moist. Anicteric. Acyanotic. Neck: Supple. Chest: Good air entry bilaterally. Cardiovascular: Irregularly irregular, but rate controlled. There is an old sternotomy scar on the anterior chest wall. GI: Abdomen is soft, nontender. Bowel sounds present. Extremities: No pedal edema. The left lower extremity is now in sterile dressing. There are some excoriations over both knees, but they look dry. Neurologic: Patient is awake, alert, and follows basic commands. LABORATORY DATA: WBC is 9.26, hemoglobin is 9.7, platelet count of 320,000. Chemistry is also reviewed. Creatinine is 1.6, which is fairly at baseline. ASSESSMENT: 1. Sepsis, secondary to left septic arthritis with Methicillin resistant Staphylococcus aureus bacteremia. 2. Multifocal right lung pneumonia, presumably from Methicillin resistant Staphylococcus aureus hematogenous seeding. The patient is on Zyvox. 3. Left ankle pain secondary to septic arthritis. The patient had a bedside aspiration done yesterday. This morning, he has gone for surgical exploration. I am waiting for the official report. 4. Acute on chronic renal failure. Creatinine is stable. Patient is making adequate urine. 5. Paroxysmal atrial fibrillation with rapid ventricular response. Heart rate is better controlled. Cardiology is on board. 6. Elevated troponin on presentation, presumably demand ischemia. However, patient also has significant history of coronary artery disease, status post coronary artery bypass grafting in the past, so possible ST elevation myocardial infarction cannot be completely ruled out. Cardiology is on board. 7. Ischemic cardiomyopathy, with ejection fraction of 40% noted. In general, I think Mr. Tello is doing a lot better. He just came from exploration of his ankle. He seems to be stable. We will continue with the current antimicrobial coverage. Infectious Disease is on board. There are repeat blood cultures for today. We are going to follow it up accordingly. cc: Jamie Solomon MD
[2019-03-02] MEDS: HUMULIN R (PARKWAY) SUBQ SCH ×4 (06:34→23:18)
[2019-03-02] MEDS: LOVENOX SUBQ SCH ×2 (06:36→17:12)
[2019-03-02] MEDS: PRILOSEC PO SCH ×2 (09:15→20:24)
[2019-03-02] MEDS: RIFAMPIN PO SCH (09:15)
[2019-03-02] MEDS: MIRALAX PO SCH (09:15)
[2019-03-02] MEDS: PERCOCET-5 PO PRN ×2 (09:16→22:21)
[2019-03-02] MEDS: ZYVOX PO SCH ×2 (09:16→20:24)
[2019-03-02] MEDS: TOPROL XL PO SCH ×2 (09:16→20:24)
[2019-03-02] MEDS: COLCRYS PO SCH ×2 (09:16→20:24)
[2019-03-02] MEDS: CORDARONE PO SCH (09:16)
[2019-03-02] MEDS: COZAAR PO SCH (09:16)
[2019-03-02] MEDS: ZYLOPRIM PO SCH ×2 (09:16→20:24)
[2019-03-02] MEDS: ASPIRIN PO SCH (09:16)
[2019-03-02] MEDS: NS 1,000 ML IV SCH ×2 (09:22→20:25)
--- NOTE | 2019-03-02 14:36 | PROGRESS NOTE ---
DATE: 03/02/2019 SUBJECTIVE: This morning Mr. Tello refers to be doing okay. No new complaints. He thinks his left ankle pains are better controlled. He is able to move much the right upper extremity as well. OBJECTIVELY: His blood pressure is 117/68, pulse of 95, respirations 15, temperature 97.2 degrees.General: Mr. Tello is a 73-year-old gentleman. He is in bed, no distress. Mucosa is pink and moist. Anicteric. Acyanotic. Neck: Supple. Chest: Good air entry bilateral. There were no crepitations, no rhonchi. Cardiovascular: Regular rate and rhythm. No murmurs, no rubs, no gallops. GI: Abdomen is soft, distended, but nontender. There is a Hernandez catheter in place. Extremities: The left lower extremity is in dressing. CONTINUOUS WASHER OPERATOR: Patient is awake, alert, and oriented. Musculoskeletal: Patient has an old sternotomy scar on the anterior chest wall. LABORATORY DATA: Glucose was 175 today. The synovial fluid did show 74,570 of WBC. 98% was all neutrophils. There were no crystals identified per pathology. ASSESSMENT: 1. Sepsis on presentation secondary to left septic ankle arthritis. The patient is status post I D of the left ankle. 2. MRSA bacteremia presumably from the septic arthritis. The patient is currently on daptomycin and rifampin. Blood cultures have been repeated. We are pending the final report. 3. Multifocal right lung pneumonia presumably from MRSA. Patient is on Zyvox. 4. Acute on chronic renal failure, stable. 5. Paroxysmal atrial fibrillation with RVR. Rate has been controlled. Cardiology is on board. 6. Elevated troponin on presentation, presumably demand ischemia. The patient has been evaluated by Cardiology and will follow up with further recommendations from them. 7. History of coronary artery disease status post coronary artery bypass graft. 8. Ischemic cardiomyopathy with ejection fraction of 40% associated with mild global hypokinesis on echocardiogram noted. PLAN: In general, I think Mr. Tello is doing a lot better. We are going to take the Hernandez catheter out today, encourage him to participate more with physical therapy. We will also try and see if we can get him to sit more in the chair. cc: Jamie Solomon MD
--- NOTE | 2019-03-02 15:05 | ORTHOPAEDICS PROGRESS NOTE ---
DATE: 03/02/2019 SUBJECTIVE: Mr. Tello is lying in bed this morning. Overall pain is fairly well controlled. He is still getting some pain down the left foot. Overall he is feeling a little better, is what he said. OBJECTIVE: Left lower extremity exam, dressing is clean, dry, and intact. He is able to move the toes well. He has good capillary refill to the toes. ASSESSMENT: Status post left subtalar joint irrigation and debridement for septic arthritis. PLAN: Cultures were taken yesterday in the OR, and we are waiting on final culture results from those. He was growing MRSA out of his blood, which more than likely is the same bacteria in his foot. I think we had a really good washout overall. I am okay with him getting up and moving. He is just nonweightbearing left lower extremity. From an orthopedic standpoint, we will continue to follow. cc: Matthew Feldman MD
[2019-03-02] MEDS: CUBICIN 500 MG in NS 100 ML IV SCH (15:07)
--- NOTE | 2019-03-02 22:23 | INFECTIOUS DISEASE PROGRESS NO ---
DATE: 03/02/2019 PRESENT ILLNESS: The patient has methicillin-resistant Staph aureus bacteremia, pneumonia, and septic ankle arthritis and osteomyelitis. MEDICATIONS: The patient has been on daptomycin for 7 days and rifampin 3 days and Zyvox 3 days. PHYSICAL EXAMINATION: Vital Signs: Temperature is 97.8 degrees, pulse 107, respirations 16, blood pressure 102/65. General: This is an ill-appearing elderly male. He is in no acute distress. Head/eyes/ears/nose/throat: He can hear my spoken words and see near objects. He does not have any white coating on his tongue. Neck: No pain with movement. Lungs: Clear to auscultation. Cardiovascular: The patient's heart rate is irregular. Abdomen: Soft and nontender. Extremities: The patient's left foot has a large dressing around it. The dressing is intact. LABORATORY DATA AND X-RAYS: All of the cultures taken at the time of surgery on the patient's foot are not growing any organisms. ASSESSMENT AND PLAN: The patient has methicillin-resistant Staphylococcus aureus bacteremia, pneumonia, and septic ankle arthritis and osteomyelitis. The plan is to continue with the current antimicrobial agents pending culture results and repeat chest x-ray. For the first of next week, I am going to get a CBC, a BMP, and a chest x-ray. COMORBIDITIES: The patient is elderly. He is a diabetic, and he had a myocardial infarction. cc: Abhijeet Saucedo MD
[2019-03-03] MEDS: TYLENOL PO PRN (01:15)
[2019-03-03] MEDS: PERCOCET-5 PO PRN ×3 (04:45→23:20)
[2019-03-03] MEDS: LOVENOX SUBQ SCH ×2 (06:13→16:13)
[2019-03-03] MEDS: HUMULIN R (PARKWAY) SUBQ SCH ×4 (06:15→21:03)
[2019-03-03] MEDS: ZYLOPRIM PO SCH ×2 (09:36→21:04)
[2019-03-03] MEDS: RIFAMPIN PO SCH (09:36)
[2019-03-03] MEDS: ZYVOX PO SCH ×2 (09:37→21:04)
[2019-03-03] MEDS: COZAAR PO SCH (09:37)
[2019-03-03] MEDS: CORDARONE PO SCH (09:37)
[2019-03-03] MEDS: COLCRYS PO SCH (09:37)
[2019-03-03] MEDS: TOPROL XL PO SCH ×2 (09:37→21:04)
[2019-03-03] MEDS: ASPIRIN PO SCH (09:37)
[2019-03-03] MEDS: MIRALAX PO SCH (09:37)
[2019-03-03] MEDS: PRILOSEC PO SCH ×2 (09:37→21:04)
[2019-03-03] MEDS: NS 1,000 ML IV SCH ×2 (09:53→21:03)
--- NOTE | 2019-03-03 12:56 | PROGRESS NOTE ---
DATE: 03/03/2019 SUBJECTIVE: This morning Mr. Tello refers to be doing a lot better. I was actually there when his dressing was being changed by Dr. Feldman, the orthopedic surgeon. Mr. Tello denied any complaints today. OBJECTIVE: Vital signs: Blood pressure is 142/66, pulse of 72, respiration is 16, temperature 98.2 degrees. General: Mr. Tello is a 73-year-old gentleman. He is in bed in no distress. HEENT: Mucosa is pink and moist. Anicteric. Acyanotic. Neck: Supple. Chest: Good air entry bilateral. There were no crepitations, no rhonchi. Cardiovascular: Regular rate and rhythm. No murmurs, no rubs, no gallops. GI: Abdomen was soft, nontender. Bowel sounds present. Extremities: The left lower extremity ankle surgical wound looks a lot better. There is not any swelling. It is not as erythematous as it used to be. The surgical site was still covered with a thin layer of dressing when I saw it. LABORATORY DATA: Glucose of 163. ASSESSMENT: 1. Sepsis on presentation secondary to left ankle septic arthritis. 2. Methicillin-resistant Staphylococcus aureus bacteremia from the left ankle. 3. Multifocal right lung pneumonia, presumably from the methicillin-resistant Staphylococcus aureus. The patient is on Zyvox. 4. Acute on chronic renal failure, stable. 5. Paroxysmal atrial fibrillation with rapid ventricular response on presentation. The patient is currently rate controlled. Cardiology is on board. 6. Elevated troponin on presentation, presumably demand ischemia. However, patient has an underlying cardiac history. 7. Coronary artery disease status post coronary artery bypass graft in the past. Ejection fraction 40% with mild global hypokinesis on current echocardiogram. The patient is currently asymptomatic. Does not have any chest pain. PLAN: So, in general, Mr. Tello is doing a lot better. A repeat blood culture has come back negative, so we are going to get PICC line team to put in a line, and we will start planning for his discharge. I think Mr. Tello is going to be on prolonged antimicrobial therapy at home. cc: Jamie Solomon MD
--- NOTE | 2019-03-03 14:50 | ORTHOPAEDICS PROGRESS NOTE ---
DATE: 03/03/2019 SUBJECTIVE: Mr. Tello is lying in bed this morning. Pain is well controlled. OBJECTIVE: Left lower extremity exam: Dressing was taken down. It does not have much erythema at all around that lateral aspect of the hindfoot. Incision looks to be healing well. He has good capillary refill to all the toes. ASSESSMENT: Status post left subtalar joint irrigation and debridement. PLAN: I think Mr. Tello is doing well overall. The wound looked good this morning. His blood cultures on 03/01 have not grown anything so far. If they do not grow anything, he will more than likely be able to get a PICC line and then try to get everything set up for outpatient antibiotics. He will probably need at least 6 weeks of IV antibiotics. From an orthopedic standpoint, he is nonweightbearing right now. I will see him in clinic once he is discharged in about a week. cc: Matthew Feldman MD
[2019-03-03] MEDS: CUBICIN 500 MG in NS 100 ML IV SCH (14:51)
[2019-03-04] MEDS: NS 1,000 ML IV SCH ×2 (01:07→09:05)
[2019-03-04] MEDS: LOVENOX SUBQ SCH (04:29)
[2019-03-04] MEDS: PERCOCET-5 PO PRN ×3 (05:02→22:11)
[2019-03-04] MEDS: HUMULIN R (PARKWAY) SUBQ SCH ×4 (06:20→21:36)
[2019-03-04] MEDS: PRILOSEC PO SCH ×2 (09:04→20:11)
[2019-03-04] MEDS: CORDARONE PO SCH (09:04)
[2019-03-04] MEDS: ZYVOX PO SCH ×2 (09:04→20:11)
[2019-03-04] MEDS: COZAAR PO SCH (09:04)
[2019-03-04] MEDS: ZYLOPRIM PO SCH ×2 (09:04→20:11)
[2019-03-04] MEDS: ASPIRIN PO SCH (09:04)
[2019-03-04] MEDS: RIFAMPIN PO SCH (09:04)
[2019-03-04] MEDS: TOPROL XL PO SCH ×2 (09:15→20:11)
[2019-03-04] MEDS: MIRALAX PO SCH (09:15)
--- NOTE | 2019-03-04 13:06 | PROGRESS NOTE ---
DATE: 03/04/2019 SUBJECTIVE: This morning, Mr. Tello refers to be doing fairly okay. The sister and the and his son were all at the bedside at the time of the encounter. OBJECTIVE: Vital Signs: Blood pressure is 137/74, pulse of 114, temperature 97.7 degrees, patient is saturating 100% on 3 L. General Examination: Mr. Tello is a 73-year-old, elderly, male. He was in bed. No distress. HEENT: Mucosa is pink and moist. Anicteric. Acyanotic. Neck: Supple. Chest: Clear to auscultation. No crepitations. No rhonchi. Cardiovascular: Regular rate and rhythm. There is an old sternotomy scar on the anterior chest wall. GI: Abdomen is soft. Bowel sounds present. Extremities: The left lower extremity still has a surgical bandage over it. The right is unremarkable. The patient is also able to move the right upper extremity. Laboratory Data: None for today. Patient's glucose is 147. Current medications have all been reviewed. Patient is still on daptomycin and rifampin. ASSESSMENT: 1. Sepsis on presentation secondary to left ankle septic arthritis. 2. Methicillin-resistant Staphylococcus aureus bacteremia from left ankle septic arthritis. The patient is on daptomycin and rifampin. 3. Multifocal pneumonia. Patient is on Zyvox. Today is day 5 on Zyvox. A chest x-ray has been ordered for tomorrow. 4. Acute on chronic renal failure, stable. Patient is making adequate urine. Hernandez catheter has been removed. 5. Paroxysmal atrial fibrillation with rapid ventricular response on presentation. Heart rate is better controlled. Patient is on amiodarone. 6. Coronary artery disease, status post coronary artery bypass graft in the past. Ejection fraction of 40% with global hypokinesis on current echocardiogram. Patient is currently asymptomatic. He is on aspirin, metoprolol, losartan for now. PLAN: In general, I think Mr. Tello is a lot better now. Repeat blood culture has come back negative so we have ordered a PICC line placement for tomorrow. After that, I think Mr. Tello can be discharged. I think Mr. Tello will need to go to a rehab or an LTAC. We will consult social work for the discharge planning. Mr. Tello still needs wound care. He still needs to continue with IV antibiotics and he will need physical therapy. I have discussed the plan with the sister and the , who were all at the bedside. cc: Jamie Solomon MD
[2019-03-04] MEDS: CUBICIN 500 MG in NS 100 ML IV SCH (13:49)
[2019-03-04] MEDS: ELIQUIS PO SCH (20:11)
[2019-03-05 05:46] LABS: BASO# 0.01 X1000 (0.0-0.2); BASO% 0.2 % (0.0-0.8); EOS# 0.07 X1000 (0.0-0.7); EOS% 1.1 % (0.0-10.0); HEMATOCRIT 27.9 % (42.0-52.0); HEMOGLOBIN 8.9 g/dL (14.0-18.0); IMM GRAN# 0.07 X1000 (0.0-0.04); IMM GRAN% 1.1 % (0.0-0.5); LYMPH# 0.66 X1000 (1.2-3.4); LYMPH% 10.6 % (20.5-51.1); MCH 24.3 PG (27-31); MCHC 31.9 g/dL (33-37); MONO# 0.41 X1000 (0.11-0.59); MONO% 6.6 % (1.7-9.3); MPV 9.6 FL (7.4-10.4); NEUT# 5.02 X1000 (1.4-6.5); NEUT% 80.4 % (42.2-75.2); PLT 395 X1000 (130-400); RBC 3.67 XMIL (4.7-6.1); RDW 21.1 % (11.5-14.5); WBC 6.24 X1000 (4.8-10.8)
[2019-03-05] MEDS: PERCOCET-5 PO PRN ×3 (06:01→20:55)
[2019-03-05 06:04] LABS: AGAP 13; BUN 17 mg/dL (8-22); CALCIUM 8.1 mg/dL (8.8-10.2); CHLORIDE 106 mmol/L (98-107); CK TOTAL 81 U/L (24-204); COSMO 280; CREATININE 1.1 mg/dL (0.7-1.2); ESTIMATED GFR > 60; GLUCOSE 182 mg/dL (70-104); POTASSIUM 4.2 mmol/L (3.5-5.1); SODIUM 137 mmol/L (136-145); TCO2 18 mmol/L (25-35)
[2019-03-05] MEDS: HUMULIN R (PARKWAY) SUBQ SCH ×4 (06:12→20:56)
[2019-03-05 06:41] LABS: INR 1.57; PROTIME 19.1 Seconds (11.0-16.0)
--- NOTE | 2019-03-05 06:58 | Diag Imaging Result Doc PS360 ---
CHEST-1 VIEW - 03/05/2019 INDICATION: pneumonia COMPARISON: 02/22/2019 FINDINGS: Stable sternotomy changes. There is worsening, severe cardiomegaly. There is worsening severe pulmonary vascular congestion. There is central pulmonary edema bilaterally. There may be trace pleural effusions. IMPRESSION: Congestive heart failure. Electronically signed by Rad Marshall 03/05/2019 6:56 AM
--- NOTE | 2019-03-05 07:53 | ORTHOPAEDICS PROGRESS NOTE ---
DATE: 03/05/2019 SUBJECTIVE: Mr. Tello is lying in bed this morning. Overall feeling okay. Not great. He is not really hurting a lot down on his left lower extremity though. OBJECTIVE: Left lower extremity exam, dressing was taken down. His incision looks to be healing great. There is no drainage at all there, just a very slight erythema right around the incision itself. He still had a little bit of swelling just to that whole left lower extremity. ASSESSMENT: Status post left subtalar joint irrigation and debridement for septic arthritis. PLAN: Mr. Tello is going to remain nonweightbearing to the left lower extremity. He is on IV antibiotics which he will need for a least 6 weeks if not 8 weeks. Once he is discharged from the hospital, I would like to see him in clinic in about a week. cc: Matthew Feldman MD
[2019-03-05] MEDS: ZYVOX PO SCH ×2 (08:23→20:55)
[2019-03-05] MEDS: CORDARONE PO SCH (08:23)
[2019-03-05] MEDS: ZYLOPRIM PO SCH ×2 (08:24→20:55)
[2019-03-05] MEDS: ASPIRIN PO SCH (08:24)
[2019-03-05] MEDS: RIFAMPIN PO SCH (08:24)
[2019-03-05] MEDS: ELIQUIS PO SCH ×2 (08:24→20:55)
[2019-03-05] MEDS: TOPROL XL PO SCH ×2 (08:24→20:55)
[2019-03-05] MEDS: COZAAR PO SCH (08:24)
[2019-03-05] MEDS: PRILOSEC PO SCH ×2 (08:24→20:55)
[2019-03-05] MEDS ORDERED: NS 250 ML ONE (08:41)
[2019-03-05] MEDS ORDERED: LASIX IV ONE (09:17)
--- NOTE | 2019-03-05 10:29 | Diag Imaging Result Doc PS360 ---
CHEST-PORTABLE - 03/05/2019 10:00 AM INDICATION: confirm PICC placement COMPARISON: 03/05/2019 at 5:45 AM FINDINGS: There is a left PICC line in good position with the catheter tip at the mid SVC. Stable cardiomegaly and pulmonary vascular congestion. There is slight decrease in the density of the pulmonary edema. IMPRESSION: Good left PICC line placement. Electronically signed by Rad Marshall 03/05/2019 10:27 AM
--- NOTE | 2019-03-05 10:51 | PROGRESS NOTE ---
DATE: 03/05/2019 SUBJECTIVE: This morning Mr. Tello refers to be doing fairly okay. He was just asking to be sent somewhere as early as possible. Mr. Tello did complain of mild shortness of breath. OBJECTIVELY: Vitals: Blood pressure is 141/91, pulse of 107 respirations 23, temperature 97.4 degrees. The patient is saturating 100% on 4 L.General: Mr. Tello is a 73-year-old male. He is in bed no distress. HEENT: Mucosa is pink and moist. Anicteric. Acyanotic. Neck: Supple. No jugular venous distention. Chest: Good air entry bilaterally. There are still a few crackles in the posterior lung helms. There is crepitations bilateral. Cardiovascular: Irregularly irregular but rate controlled. There is an old sternotomy scar on the anterior chest wall. Abdomen: Soft, nontender. Bowel sounds present. Extremities: The left lower extremity still has still has a dressing over it. The right is unremarkable. The patient is able to move some the right upper extremity, still complain of some pain however. LABS: WBC 6.24, hemoglobin is 8.9, platelet count of 395,000. Chemistry is also reviewed. The patient's pro BNP is 26,230. A chest x-ray this morning seems to suggest worsening severe pulmonary vascular congestion. There is heart failure. ASSESSMENT: 1. Sepsis on presentation secondary to left ankle septic arthritis. 2. Methicillin resistant staphylococcus aureus bacteremia from left ankle septic arthritis. 3. Multifocal pneumonia patient is on Zyvox, today is day 6. 4. Acute kidney failure, resolved. 5. Paroxysmal atrial fibrillation with rapid ventricular response. The patient is currently rate control, but continues to be in atrial fibrillation. 6. History of coronary artery disease status post coronary artery bypass grafting in the past. 7. Pulmonary edema secondary to congestive heart failure. Ejection fraction of 40% with global hypokinesis on recent echo. The patient's pro B is slightly elevated and he is getting more symptomatic. I think part of it is because of hydration over the hospital course for the sepsis and for the acute kidney injury. We are going to give him a dose of Lasix to enhance diuresis and re-evaluate him tomorrow. DISPOSITION: Mr. Tello is pending a PICC line placement today and an arrangement to either go to an LTAC or a rehab. Mr. Tello is going to be needing about 6 weeks of IV antimicrobial therapy for the septic arthritis. cc: Jamie Solomon MD
[2019-03-05] MEDS: CUBICIN 500 MG in NS 100 ML IV SCH (15:49)
--- NOTE | 2019-03-05 20:03 | INFECTIOUS DISEASE PROGRESS NO ---
DATE: 03/05/2019 PRESENT ILLNESS: The patient has a methicillin-resistant Staphylococcus aureus bacteremia, pneumonia, and septic ankle arthritis with osteomyelitis also. MEDICATIONS: This is day 10 of treatment with daptomycin, day 6 of treatment with rifampin and day 6 of treatment with Zyvox. PHYSICAL EXAMINATION: Vital Signs: Temperature is 97.9 degrees, pulse 107, respirations 16, blood pressure 150/82. General: This is an ill-appearing elderly male. He is in no acute distress. Head/eyes/ears/nose/throat: He can hear my spoken words and see near objects. He does not have any white patches in his mouth. Neck: He does not have pain when he moves his neck. Lungs: Clear to auscultation. Cardiovascular: Heart rate is irregular. Abdomen: Soft and nontender. Extremities: The patient has a large dressing around the left foot and ankle. The dressing is intact. The patient has a PICC in his left arm. The site is not erythematous or bleeding. LABORATORY AND X-RAY: Chest x-ray shows pulmonary venous congestion. CBC shows a white count of 6240, hemoglobin 8.9, and platelet count 395,000. Creatinine is 1.1. GFR is greater than 60. Chest x-ray shows pulmonary venous congestion. CBC shows a white count of 6240, hemoglobin 8.9, and platelet count 395,000. Creatinine is 1.1. The patient's CK is 81. ASSESSMENT AND PLAN: The patient has methicillin-resistant Staphylococcus aureus bacteremia, pneumonia, and septic ankle arthritis along with osteomyelitis. The plan is to continue with daptomycin, rifampin and Zyvox. COMORBIDITIES: The patient is elderly. He also is a diabetic and he has recently had a myocardial infarction. cc: Abhijeet Saucedo MD
[2019-03-06] MEDS: PERCOCET-5 PO PRN ×2 (03:17→17:19)
[2019-03-06 05:55] LABS: HEMATOCRIT 25.2 % (42.0-52.0); HEMOGLOBIN 8.2 g/dL (14.0-18.0); MCH 25.1 PG (27-31); MCHC 32.5 g/dL (33-37); MCV 77.1 FL (81-99); MPV 9.1 FL (7.4-10.4); RBC 3.27 XMIL (4.7-6.1); RDW 21.1 % (11.5-14.5); WBC 5.03 X1000 (4.8-10.8)
[2019-03-06 06:16] LABS: AGAP 12; ALBUMIN 2.4 g/dL (3.5-5.0); BUN 17 mg/dL (8-22); CALCIUM 8.2 mg/dL (8.8-10.2); CHLORIDE 105 mmol/L (98-107); COSMO 280; CREATININE 0.9 mg/dL (0.7-1.2); ESTIMATED GFR > 60; GLUCOSE 154 mg/dL (70-104); PHOSPHORUS 2.8 mg/dL (2.7-4.5); POTASSIUM 4.3 mmol/L (3.5-5.1); SODIUM 138 mmol/L (136-145); TCO2 21 mmol/L (25-35)
[2019-03-06] MEDS: HUMULIN R (PARKWAY) SUBQ SCH (07:01)
--- NOTE | 2019-03-06 07:29 | Diag Imaging Result Doc PS360 ---
EXAM: CHEST-PORTABLE INDICATION: dyspnea TECHNIQUE: One view COMPARISON: 03/05/2019 FINDINGS: The left PICC line is in stable position. Pulmonary venous congestion and pulmonary edema are approximately stable. No new consolidation is identified. Cardiac silhouette is stable. IMPRESSION: Essentially stable chest. Electronically signed by Devin Eason 03/06/2019 7:27 AM
[2019-03-06] MEDS: PRILOSEC PO SCH ×2 (08:17→22:11)
[2019-03-06] MEDS: COZAAR PO SCH (08:17)
[2019-03-06] MEDS: RIFAMPIN PO SCH (08:17)
[2019-03-06] MEDS: ZYLOPRIM PO SCH ×2 (08:17→22:11)
[2019-03-06] MEDS: CORDARONE PO SCH (08:17)
[2019-03-06] MEDS: ZYVOX PO SCH ×2 (08:17→22:11)
[2019-03-06] MEDS: ASPIRIN PO SCH (08:17)
[2019-03-06] MEDS: TOPROL XL PO SCH ×2 (08:17→22:11)
[2019-03-06] MEDS: ELIQUIS PO SCH ×2 (08:17→22:11)
[2019-03-06] MEDS ORDERED: LASIX IV ONE (08:42)
[2019-03-06] MEDS: HUMULIN R SUBQ SCH ×3 (11:24→22:12)
[2019-03-06] MEDS: CUBICIN 500 MG in NS 100 ML IV SCH (15:13)
[2019-03-07] MEDS: PERCOCET-5 PO PRN ×2 (06:24→20:57)
[2019-03-07] MEDS: HUMULIN R SUBQ SCH ×4 (06:24→20:57)
[2019-03-07] MEDS: ELIQUIS PO SCH ×2 (08:42→20:56)
[2019-03-07] MEDS: PRILOSEC PO SCH ×2 (08:42→20:56)
[2019-03-07] MEDS: CORDARONE PO SCH (08:42)
[2019-03-07] MEDS: ASPIRIN PO SCH (08:42)
[2019-03-07] MEDS: TOPROL XL PO SCH ×2 (08:42→20:56)
[2019-03-07] MEDS: ZYVOX PO SCH ×2 (08:42→20:56)
[2019-03-07] MEDS: ZYLOPRIM PO SCH ×2 (08:42→20:56)
[2019-03-07] MEDS: RIFAMPIN PO SCH (08:43)
[2019-03-07] MEDS: COZAAR PO SCH (08:43)
--- NOTE | 2019-03-07 12:57 | PROGRESS NOTE ---
DATE: 03/07/2019 SUBJECTIVE: This morning, Mr. Tello refers to be doing fairly okay. No new complaints. We are just waiting for an LTAC placement. OBJECTIVE: Vital Signs: Blood pressure is 122/72, pulse of 97, respirations are 20, temperature is 97.8 degrees. General Examination: Mr. Tello is a 73-year-old, elderly, male. He is in bed. He is not in any distress. HEENT: mucosa is pink and moist. Anicteric. Acyanotic. Neck: Supple. Chest: Clear to auscultation. No crepitations. No rhonchi. Cardiovascular: Irregularly irregular but rate controlled. There is an old sternotomy scar on the anterior chest wall. GI: Abdomen is soft, nontender. Bowel sounds present. Extremities: The left lower extremity still is in a sterile dressing. The right is unremarkable. 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 Laboratory Data: Glucose is 207. No new imaging studies. Medications have all been reviewed. Patient is on daptomycin and rifampin. ASSESSMENT: 1. Sepsis on presentation secondary to left ankle septic arthritis. The patient is status post incision and drainage of the left ankle and he is on ideal antimicrobial coverage. 2. Methicillin-resistant Staphylococcus aureus bacteremia from left ankle septic arthritis. 3. Multifocal pneumonia. The patient is on Zyvox. Today is day 7. 4. Acute kidney injury on presentation, resolved. 5. Paroxysmal atrial fibrillation with rapid ventricular response on presentation. The patient continues to be in atrial fibrillation but is currently rate controlled. 6. History of coronary artery disease, status post coronary artery bypass graft in the past. 7. Pulmonary edema secondary to congestive heart failure with an ejection fraction of 40%, with global hypokinesis on recent echocardiogram. The patient is breathing a whole lot better. He is also diuresing adequately. He is currently negative balance of 12,279. He looks euvolemic. We will repeat his proBNP tomorrow to follow it up. PLAN: In general, I think Mr. Tello is clinically stable for discharge. Unfortunately, he still needs a lot of physical therapy. He needs to be on daptomycin for MRSA septic arthritis associated with bacteremia for, I understand, 6 weeks. I understand that Mr. Tello cannot go home because the also has a very sick, mentally challenged kid and would not be able to take care of him at home. He needs more care than just rehab so we suggest and we recommend that he goes to an LTAC. I have been told that his LTAC application has been declined. I have called to the [facility] at [phone] to discuss why they have declined. I am yet to hear from them. We will probably need to make another followup call tomorrow if I do not hear from them. cc: Jamie Solomon MD MTDEliana
--- NOTE | 2019-03-07 14:40 | INFECTIOUS DISEASE PROGRESS NO ---
DATE: 03/07/2019 PRESENT ILLNESS: The patient has methicillin-resistant Staphylococcus aureus bacteremia, pneumonia, and septic ankle arthritis with osteomyelitis. MEDICATIONS: This is day 6 of treatment with daptomycin and rifampin with day 1 being the first day that the repeat blood cultures are negative. The patient has been on Zyvox now for 8 days. PHYSICAL EXAMINATION: Vital Signs: Temperature is 97.8 degrees, pulse 97, respirations 20, blood pressure is 122/72. General: This is an ill-appearing elderly male who is in no acute distress. Head, Eyes, Ears, Nose, and Throat: He can hear my spoken words and he can see near objects. He does not have any white coating on his tongue. Neck: He does not have pain when he moves his neck. Lungs: Clear to auscultation. Cardiovascular: Heart rate is irregular. Abdomen: Soft and nontender. Extremities: The patient has a PICC in the left arm. The site is not erythematous or swollen. The patient has a large dressing around his left foot and ankle. The dressing is intact. LABORATORY AND X-RAY STUDIES: No new radiographic study. The creatinine is 0.9, GFR is greater than 60. CK was 81. CBC shows a white count of 5030, hemoglobin 8.2, and platelet count 329,000. ASSESSMENT AND PLAN: The patient is being treated for a methicillin-resistant Staphylococcus aureus bacteremia, pneumonia, and septic ankle arthritis, along with osteomyelitis. I plan to continue the Zyvox for a total of 2 weeks and the daptomycin and rifampin for a total of 8 weeks. This is day 6 of treatment with the agents, with day number 1 being the first day that the repeat blood cultures were sterile. COMORBIDITIES: The patient is elderly and he is a diabetic. cc: Abhijeet Saucedo MD
[2019-03-07] MEDS: CUBICIN 500 MG in NS 100 ML IV SCH (15:47)
[2019-03-08] MEDS: PERCOCET-5 PO PRN ×2 (03:19→18:35)
[2019-03-08 06:20] LABS: BASO# 0.01 X1000 (0.0-0.2); BASO% 0.2 % (0.0-0.8); EOS# 0.12 X1000 (0.0-0.7); EOS% 2.9 % (0.0-10.0); HEMATOCRIT 27.3 % (42.0-52.0); HEMOGLOBIN 8.5 g/dL (14.0-18.0); IMM GRAN# 0.02 X1000 (0.0-0.04); IMM GRAN% 0.5 % (0.0-0.5); LYMPH# 0.86 X1000 (1.2-3.4); LYMPH% 20.5 % (20.5-51.1); MCH 24.1 PG (27-31); MCHC 31.1 g/dL (33-37); MCV 77.3 FL (81-99); MONO# 0.42 X1000 (0.11-0.59); MPV 9.7 FL (7.4-10.4); NEUT# 2.76 X1000 (1.4-6.5); NEUT% 65.9 % (42.2-75.2); PLT 267 X1000 (130-400); RBC 3.53 XMIL (4.7-6.1); RDW 20.9 % (11.5-14.5); WBC 4.19 X1000 (4.8-10.8)
[2019-03-08] MEDS: HUMULIN R SUBQ SCH ×4 (06:33→23:10)
[2019-03-08 06:38] LABS: AGAP 9; BUN 14 mg/dL (8-22); CALCIUM 8.7 mg/dL (8.8-10.2); CHLORIDE 104 mmol/L (98-107); CK TOTAL 81 U/L (24-204); COSMO 280; CREATININE 1.1 mg/dL (0.7-1.2); ESTIMATED GFR > 60; GLUCOSE 161 mg/dL (70-104); POTASSIUM 3.9 mmol/L (3.5-5.1); SODIUM 138 mmol/L (136-145); TCO2 25 mmol/L (25-35)
[2019-03-08] MEDS: ZYLOPRIM PO SCH ×2 (08:36→23:10)
[2019-03-08] MEDS: PRILOSEC PO SCH ×2 (08:36→23:10)
[2019-03-08] MEDS: CORDARONE PO SCH (08:36)
[2019-03-08] MEDS: COZAAR PO SCH (08:36)
[2019-03-08] MEDS: ZYVOX PO SCH ×2 (08:36→23:10)
[2019-03-08] MEDS: RIFAMPIN PO SCH (08:36)
[2019-03-08] MEDS: ELIQUIS PO SCH ×2 (08:36→23:10)
[2019-03-08] MEDS: TOPROL XL PO SCH ×2 (08:36→23:10)
[2019-03-08] MEDS: ASPIRIN PO SCH (08:36)
--- NOTE | 2019-03-08 09:35 | PROGRESS NOTE ---
DATE: 03/08/2019 SUBJECTIVE: The patient seems to be doing better. No new complaints. He will be discharged to an LTAC as soon as we have a bed for him. OBJECTIVE: Vital Signs: Temperature 97.6 degrees, pulse 72, respiratory rate 16, blood pressure 146/68, oxygen saturation 100% on room air. HEENT: Head normocephalic, no trauma. PERRLA. Neck: Supple. No JVD. No masses. Central trachea. Chest: Irregularly irregular rate and rhythm, rate controlled. Abdomen: Soft, nontender, nondistended. No hepatosplenomegaly. Extremities: Left lower extremity still with a dressing; right is unremarkable. Neurological examination: This patient is alert and oriented. He is following commands. LABORATORY: WBC 4.1, hemoglobin 8.5, hematocrit 27.3, platelets 267. Sodium 138, potassium 3.9, chloride 104, bicarbonate 25. BUN 14, creatinine 1.1, glucose 161, calcium 8.7. ASSESSMENT AND PLAN: 1. Sepsis on presentation secondary to left ankle septic arthritis, status post incision and drainage of the left ankle. He is on antibiotics per Infectious Disease Department. 2. Methicillin-resistant Staphylococcus aureus bacteremia from left ankle septic arthritis. Continue with antibiotics per Infectious Disease Department. He is on daptomycin, Zyvox and rifampin. 3. Multifocal pneumonia. Continue with Zyvox. Today is day #8. 4. Acute kidney injury presentation, resolved. 5. Paroxysmal atrial fibrillation with rapid ventricular response on presentation. He is still in atrial fibrillation, but rate controlled. 6. History of coronary artery disease status post coronary artery bypass graft. 7. Pulmonary edema secondary to congestive heart failure with an ejection fraction of 40% with global hypokinesis on recent echocardiogram. He is not complaining of shortness of breath or chest pain. So far, he has a negative balance of 1654 mL, but since the beginning of the hospitalization he has a negative balance of more than 13.8 liters. The patient seems to be stable. The plan is to send this patient to an LTAC once a bed is available. cc: Osiel Looney MD
--- NOTE | 2019-03-08 14:17 | ORTHOPAEDICS PROGRESS NOTE ---
DATE: 03/08/2019 SUBJECTIVE: Mr. Tello is lying in bed. He is feeling actually really well. He feels like the foot is doing a lot better. OBJECTIVE: Left Lower Extremity Examination: Took the dressing down. There was just a little bit of erythema just right around the incision. Most of the skin actually looks great. There is no swelling there either and there is no drainage. ASSESSMENT: Left subtalar joint irrigation and debridement. PLAN: I am okay with Mr. Tello starting to do some weightbearing. I am going to order him a boot today. He will be weight bear as tolerated left lower extremity, and from the orthopedic standpoint, I will need to see him in about 2 weeks in clinic. cc: Matthew Feldman MD
--- NOTE | 2019-03-08 14:37 | INFECTIOUS DISEASE PROGRESS NO ---
DATE: 03/08/2019 PRESENT ILLNESS: The patient has a methicillin-resistant Staph aureus bacteremia, pneumonia, and septic ankle arthritis with osteomyelitis. MEDICATIONS: This is day 7 of treatment with daptomycin and rifampin. The patient has been on Zyvox now for 9 days. PHYSICAL EXAMINATION: Vital Signs: Temperature is 98.4 degrees, pulse 73, respirations 15, blood pressure 144/65. General: This is an ill-appearing elderly male. He is slightly lethargic. He is in no acute distress. Head, eyes, ears, nose, and throat: He can hear my spoken words and see near objects. He does not have any white coating on his tongue. Neck: No pain with movement of his neck. Lungs: Clear to auscultation. Cardiovascular: Patient's heart rate is regular. Abdomen: Soft and nontender. Extremities: The patient has a PICC in his left arm. The site is not erythematous or purulent. The patient has a large dressing on his left foot and ankle. The dressing is intact. Neurologic: The patient is slightly lethargic, but he does talk in a coherent fashion and he can move his extremities. Integument: No rash noted. LAB AND X-RAY: The patient does not have any lab studies for today and the patient does not have any x-ray for today. ASSESSMENT AND PLAN: The patient has a Staph bacteremia, pneumonia, and septic ankle arthritis along with osteomyelitis. The plan is to treat with Zyvox for 2 weeks, which along with rifampin will treat the patient's pneumonia. The patient is going to be on the combination of daptomycin with rifampin for treatment of the patient's septic ankle arthritis and osteomyelitis for a total of 8 weeks. COMORBIDITIES: The patient is elderly and he also has diabetes. cc: Abhijeet Saucedo MD
[2019-03-08] MEDS: CUBICIN 500 MG in NS 100 ML IV SCH (16:11)
[2019-03-09] MEDS: PERCOCET-5 PO PRN (01:21)
[2019-03-09] MEDS: HUMULIN R SUBQ SCH (06:04)
[2019-03-09 07:59] VITALS: BP 143/65
[2019-03-09 08:21] LABS: BASO# 0.05 X1000 (0.0-0.2); BASO% 1.1 % (0.0-0.8); EOS# 0.09 X1000 (0.0-0.7); HEMATOCRIT 26.9 % (42.0-52.0); HEMOGLOBIN 8.4 g/dL (14.0-18.0); IMM GRAN# 0.02 X1000 (0.0-0.04); IMM GRAN% 0.4 % (0.0-0.5); LYMPH% 17.5 % (20.5-51.1); MCH 24.3 PG (27-31); MCHC 31.2 g/dL (33-37); MONO# 0.33 X1000 (0.11-0.59); MONO% 7.2 % (1.7-9.3); MPV 9.7 FL (7.4-10.4); NEUT# 3.28 X1000 (1.4-6.5); NEUT% 71.8 % (42.2-75.2); PLT 221 X1000 (130-400); RBC 3.45 XMIL (4.7-6.1); RDW 20.6 % (11.5-14.5); WBC 4.57 X1000 (4.8-10.8)
[2019-03-09 08:51] LABS: AGAP 15; BUN 12 mg/dL (8-22); CALCIUM 8.3 mg/dL (8.8-10.2); CHLORIDE 98 mmol/L (98-107); CK TOTAL 83 U/L (24-204); COSMO 273; ESTIMATED GFR > 60; GLUCOSE 160 mg/dL (70-104); POTASSIUM 4.3 mmol/L (3.5-5.1); SODIUM 135 mmol/L (136-145); TCO2 22 mmol/L (25-35)
--- NOTE | 2019-03-09 09:02 | DISCHARGE SUMMARY ---
ADMISSION DATE: 02/22/2019 DISCHARGE DATE: DISCHARGE DIAGNOSES: 1. Sepsis on presentation secondary to left ankle septic arthritis. 2. Methicillin-resistant Staph aureus bacteremia from left ankle septic arthritis. 3. Left ankle septic arthritis. 4. Multifocal pneumonia. 5. Acute kidney injury on presentation, resolved. 6. Paroxysmal atrial fibrillation with rapid ventricular rate on presentation. 7. History of coronary artery disease status post coronary artery bypass graft. 8. Pulmonary edema secondary to congestive heart failure with an ejection fraction of 40% with global hypokinesis on recent echocardiogram. 9. Generalized weakness and physical deconditioning. PROCEDURES PERFORMED: Chest x-ray dated 02/22/2019. Impression: No pneumonia. Echocardiogram dated 02/23/2019. Impression: The aortic valve is sclerotic. The pulmonary arterial pressure by Doppler is 65 mmHg suggesting [id number] pulmonary hypertension, ejection fraction around 40% in the setting of mild global hypokinesis, atrial fibrillation during the study. Lower extremity CT scan dated 02/23/2019. Impression: Extensive changes associated with calcaneus and talus that appeared to be chronic and posttraumatic. No finding that is specific for osteomyelitis given the limitations of CT versus MRI. Humerus x-ray dated 02/24/2019. Impression: No evidence of acute osseous abnormality. Shoulder x-ray dated 02/24/2019. Impression: No evidence of osseous abnormality. Chest, abdomen and pelvis CT scan dated 02/25/2019. Impression: Multifocal pneumonia on the right, bilateral small pleural effusion and bibasilar atelectasis, mild nonspecific perinephric stranding more prominent on the right, this could be chronic due to perinephric fibrotic change. However, questionable mild rectal wall thickening. Three-phase bone scan dated 02/27/2019. Impression: The possibility of osteomyelitis/septic arthritis in the left ankle and hindfoot cannot be excluded. Advise correlation with plain radiograph. Transesophageal echocardiogram dated 02/27/2019. Again the ejection fraction 40 to 45 percent. No thrombus or vegetations. Foot x-ray dated 02/27/2019. 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 Left subtalar arthrotomy with irrigation and debridement due to left subtalar joint septic arthritis dated 03/01/2019. Chest x-ray dated 03/05/2019. Impression: Good left PICC line placement. CONSULT: Infectious Disease Department Dr. Abhijeet Saucedo, Orthopedic Surgery Department Dr. Feldman/Dr. Roblero, Cardiology Department Dr. Win/Dr. Dinh. HOSPITAL COURSE: A 73-year-old, male with a past medical history of hypertension, atrial fibrillation on Coumadin, diabetes, hyperlipidemia, coronary artery disease status post CABG, presented to the emergency department and was admitted on 02/22/2019. As per the records apparently, he presented to the ER a couple days before admission. He denied any chest pain or shortness of breath. He basically was feeling extremely weak with some nausea and had vomiting twice, fever and chills, he was a little bit confused, elevated troponin. EKG showed some elevation in lead 3 and F but comparing the EKG, there were no big changes, but it was considered a non ST elevation myocardial infarction and not an ST elevation myocardial infarction. He also had some signs and symptoms of sepsis. His lactate level was up. White blood cell actually was normal, but he was tachycardic, atrial fibrillation with rapid ventricular response. Blood pressure was stable. He was transferred to [facility]. He was started on broad-spectrum antibiotics. We did an echocardiogram that showed a low ejection fraction at around 40% with some global hypokinesis, also pulmonary hypertension. He was evaluated by Cardiology Department. There was not acute ST elevation to account for any acute myocardial infarction and he denied chest pain. From cardiac standpoint he had abnormal cardiac enzymes/type 2 AZ but they suspected that this symptomatology was secondary to an infected infectious process. We found out that this patient had a gram-positive cocci bacteremia, he was septic and he was complaining of left ankle pain, acute kidney injury, and like I mentioned before, elevated troponin with no acute EKG changes concerning for demand ischemia/type 2 myocardial infarction versus possible non ST elevation AZ. He also was a bit thrombocytopenic and likely was due to sepsis. Blood culture came back positive for MRSA. Infectious Disease Department got involved and he decided on his antibiotics. Orthopedic Surgery was consulted due to septic arthritis on the left ankle. They went for surgery with this patient on 03/01/2019. They did a left subtalar arthrotomy with irrigation and debridement. Culture from that area showed also MRSA. The patient during the course of his hospitalization got complicated with also pneumonia, so the patient so far has MRSA bacteremia with septic arthritis and pneumonia along with osteomyelitis. He was placed on Zyvox along with rifampin to treat this patient's pneumonia. He is using a combination of daptomycin and rifampin for treatment of this patient'S septic ankle arthritis and osteomyelitis for a total of 8 weeks. So in summary, he will receive Zyvox for 2 weeks, Zyvox was started on 02/27/2019, his last dose should be on 03/12/2019. Now daptomycin and rifampin will treat this patient's septic ankle arthritis and osteomyelitis for a total of 8 weeks, today is #8 of those agents with day #1 being the first day that the repeat blood cultures were sterile. The repeated blood culture with no signs of infection was done on 03/01/2019, so it looks like the last dose of the treatment will be on 04/25/2019. This patient has been accepted to go to an LTAC. Again, he needs to follow up with Cardiology Department in 1 month, with Dr. Win. Also, follow up with Infectious Disease department in 2 to 3 weeks. Follow up with Orthopedic Surgery Department, Dr. Feldman in 2 weeks. OBJECTIVE: Vital Signs: Temperature 98.2 degrees, pulse 78, respiratory rate 16, blood pressure 150/61, oxygen saturation 96 on room air. HEENT: Head normocephalic. No trauma. PERRLA. Neck: Supple. No JVD. No masses. Central trachea. Chest: Irregularly irregular rate and rhythm. Some crepitus at the bases mostly. Abdomen: Soft, nontender, nondistended. No hepatosplenomegaly. Extremities: Left lower extremity with a dressing. Right is unremarkable. Neurological: Alert and oriented. He is following commands. He is weak. LABORATORY: Glucose 150. Laboratory from yesterday WBC 4.1, hemoglobin 8.5, hematocrit 27.3, platelet count 267,000. Sodium 138, potassium 3.9, chloride 104, bicarbonate 25, BUN 14, creatinine 1.1, glucose 161, calcium 8.7. DISCHARGE MEDICATIONS: 1. Eliquis 5 mg p.o. twice a day. 2. Percocet 5, 1 to 2 tablets p.o. q.4 hours as needed for pain. 3. Linezolid 600 mg every 12 hours. 4. Rifampin mg p.o. daily. 5. Allopurinol 100 mg p.o. twice a day. 6. Aspirin 81 mg p.o. daily. 7. Acetaminophen 650 mg p.o. every 6 hours as needed for fever. 8. Actos 15 mg p.o. daily. 9. Metformin 500 mg p.o. twice a day. 10. Metoprolol 50 mg p.o. twice a day. 11. Omeprazole 20 mg p.o. twice a day. 12. Amiodarone 400 mg p.o. daily. 13. Losartan 50 mg p.o. daily. 14. Daptomycin 500 mg IV q.24 hours. Please follow the recommendations of Dr. Saucedo antibiotics. Please monitor the end of treatment in my hospital course. Follow up with Orthopedic Surgery Department. Follow up with Cardiology and Infectious Disease Department as suggested. Time discharging this patient 40 minutes. cc: Osiel Looney MD MTDD
[2019-03-09] MEDS: ELIQUIS PO SCH (09:58)
[2019-03-09] MEDS: PRILOSEC PO SCH (09:58)
[2019-03-09] MEDS: ASPIRIN PO SCH (09:58)
[2019-03-09] MEDS: TOPROL XL PO SCH (09:58)
[2019-03-09] MEDS: ZYLOPRIM PO SCH (09:58)
[2019-03-09] MEDS: CORDARONE PO SCH (09:58)
[2019-03-09] MEDS: ZYVOX PO SCH (09:58)
[2019-03-09] MEDS: RIFAMPIN PO SCH (09:58)
[2019-03-09] MEDS: COZAAR PO SCH (09:58)
== END 2019-03-09 11:49 | DRG 853 ==
LOC: P.ED 14:34 → SUATTDRO 17:17 → 2N 17:17 → 3N 03-08 17:12
PROVIDERS: ATTEND Internal Medicine